=== PATIENT | male | born 1945 | race Caucasian/White ===

== ENCOUNTER 2017-09-22 12:58 | Outpatient (CLI) | payer MEDICARE | END 2017-09-22 12:59 | disposition home or self-care (01) | LOC: DI 12:58 | PROVIDERS: ATTEND Registered Nurse | DX: I35.0 Nonrheumatic aortic (valve) stenosis (principal); I77.810 Thoracic aortic ectasia; I51.7 Cardiomegaly | CPT/HCPCS: 93306 ==

== ENCOUNTER 2018-01-31 11:03 | Outpatient (CLI) | payer MEDICARE ==
[2018-01-31 17:24] LABS: BASOPHILS % (AUTO) 0.7 %; EOSINOPHILS # (AUTO) 0.2 10^3/uL (0.0-0.7); EOSINOPHILS % (AUTO) 2.6 %; LYMPHOCYTES # (AUTO) 1.3 10^3/uL (1.5-3.5); LYMPHOCYTES % (AUTO) 21.1 %; MEAN CORPUSCULAR HEMOGLOBIN 28.8 pg (27.0-31.0); MEAN CORPUSCULAR HGB CONC 32.7 g/dL (32.0-36.0); MEAN CORPUSCULAR VOLUME 88.1 fL (80.0-94.0); MEAN PLATELET VOLUME 7.2 fL (7.4-11.4); MONOCYTES # (AUTO) 0.7 10^3/uL (0.0-1.0); MONOCYTES % (AUTO) 10.4 %; NEUTROPHILS # (AUTO) 4.1 10^3/uL (1.5-6.6); NEUTROPHILS % (AUTO) 65.2 %; PLT - PLATELET COUNT 158 10^3/uL (130-450); RED BLOOD COUNT 4.51 10^6/uL (4.70-6.10); WHITE BLOOD COUNT 6.3 x10^3/uL (4.8-10.8)
[2018-01-31 17:52] LABS: CALCIUM 8.5 mg/dL (8.5-10.3); CREATININE 1.1 mg/dL (0.6-1.2)
[2018-01-31 17:57] LABS: INR 1.2 (0.8-1.2); PT - PROTHROMBIN TIME 13.8 secs (9.9-12.6)
== END 2018-01-31 11:04 | disposition home or self-care (01) ==
LOC: LAB.F 11:03
PROVIDERS: ATTEND Specialist
DX: I35.0 Nonrheumatic aortic (valve) stenosis (principal); R06.09 Other forms of dyspnea
CPT/HCPCS: 36415; 80048; 85025; 85610; 85730

== ENCOUNTER 2018-02-14 07:46 | Outpatient (CLI) | payer MEDICARE | END 2018-02-14 07:47 | disposition home or self-care (01) | LOC: LAB.F 07:46 | PROVIDERS: ATTEND Student in an Organized Health Care Education/Training Program | DX: E27.9 Disorder of adrenal gland, unspecified (principal) | CPT/HCPCS: 36415; 82088; 82533; 83835 ==

== ENCOUNTER 2018-04-19 10:44 | Outpatient (CLI) | payer MEDICARE | END 2018-04-19 10:45 | disposition home or self-care (01) | LOC: RT 10:44 | PROVIDERS: ATTEND Internal Medicine Cardiovascular Disease | DX: Z95.2 Presence of prosthetic heart valve (principal); Z79.01 Long term (current) use of anticoagulants | CPT/HCPCS: 36415; 80048; 93005 ==

== ENCOUNTER 2018-04-19 11:11 | Outpatient (CLI) | payer MEDICARE ==
[2018-04-19 11:59] LABS: CALCIUM 8.7 mg/dL (8.5-10.3); CREATININE 1.2 mg/dL (0.6-1.2)
== END 2018-04-19 11:12 | disposition home or self-care (01) ==
LOC: LAB 11:11
PROVIDERS: ATTEND Internal Medicine Cardiovascular Disease
DX: Z79.01 Long term (current) use of anticoagulants (principal)
CPT/HCPCS: 36415; 80048

== ENCOUNTER 2018-10-17 11:12 | Outpatient (CLI) | payer MEDICARE ==
--- NOTE | 2018-10-17 11:45 | XRAY Report ---
Reason: PAIN IN LEFT SHOULDER Procedure Date: 10/17/2018 Accession Number: [id number] / [id number] Procedure: XR - Shoulder 3 View LT CPT Code: FULL RESULT: EXAM: LEFT SHOULDER RADIOGRAPHY EXAM DATE: 10/17/2018 11:23 AM. CLINICAL HISTORY: PAIN IN LEFT SHOULDER. COMPARISON: None. TECHNIQUE: 3 views. FINDINGS: Bones: Severe AC joint osteoarthritis. No acute fracture. No other significant bony finding. Joints: The glenohumeral and acromioclavicular joints are normal. Soft tissues: The visualized hemithorax is unremarkable. No soft tissue swelling. No soft tissue calcifications. IMPRESSION: 1. Severe left AC joint osteoarthritis. 2. Otherwise negative examination. No acute fracture. RADIA
== END 2018-10-17 11:13 | disposition home or self-care (01) ==
LOC: DI 11:12
PROVIDERS: ATTEND Registered Nurse
DX: M19.012 Primary osteoarthritis, left shoulder (principal)

== ENCOUNTER 2019-07-11 13:09 | Outpatient (CLI) | payer MEDICARE | END 2019-07-11 13:10 | disposition home or self-care (01) | LOC: LAB.S 13:09 | PROVIDERS: ATTEND Nurse Practitioner Family | DX: R53.83 Other fatigue (principal) | CPT/HCPCS: 36415; 87040; 87077; 87181 ==

== ENCOUNTER 2019-07-12 09:31 | Outpatient (CLI) | payer MEDICARE | END 2019-07-12 09:32 | disposition home or self-care (01) | LOC: LAB.S 09:31 | PROVIDERS: ATTEND Nurse Practitioner Family | DX: R53.83 Other fatigue (principal) | CPT/HCPCS: 36415; 87040 ==

== ENCOUNTER 2019-07-31 11:07 | Outpatient (CLI) | payer MEDICARE ==
[2019-07-31 18:01] LABS: ALBUMIN 3.6 g/dL (3.2-5.5); ALBUMIN/GLOBULIN RATIO 1.2 (1.0-2.2); BILIRUBIN,TOTAL 0.7 mg/dL (0.2-1.0); CALCIUM 8.4 mg/dL (8.5-10.3); CREATININE 1.1 mg/dL (0.6-1.2); TOTAL PROTEIN 6.6 g/dL (6.7-8.2)
== END 2019-07-31 11:08 | disposition home or self-care (01) ==
LOC: LAB.S 11:07
PROVIDERS: ATTEND Nurse Practitioner Family
DX: R74.8 Abnormal levels of other serum enzymes (principal)
CPT/HCPCS: 36415; 80053

== ENCOUNTER 2019-08-02 09:43 | Outpatient (CLI) | payer MEDICARE ==
[2019-08-02] MEDS ORDERED: IOVERSOL 320 50 ML VIAL ONE (09:50)
[2019-08-02] MEDS ORDERED: IOVERSOL 320 100 ML VIAL IVP ONE ×2 (09:50→12:29)
[2019-08-02] MEDS ORDERED: IOVERSOL 320 50 ML VIAL PO ONE (12:29)
--- NOTE | 2019-08-02 12:39 | CT Report ---
Reason: GALL STONES Procedure Date: 08/02/2019 Accession Number: [id number] / [id number] Procedure: CT - Abdomen/Pelvis W CPT Code: Final Report FULL RESULT: EXAM: CT ABDOMEN AND PELVIS EXAM DATE: 08/02/2019 11:09 AM. CLINICAL HISTORY: GALL STONES. COMPARISONS: ABD/PEL 01/16/2006 7:13 AM. TECHNIQUE: Routine helical CT imaging was performed through the abdomen and pelvis. IV contrast: OPTI 320 90ML. Enteric contrast: No. Reconstructions: Coronal and sagittal. In accordance with CT protocol optimization, one or more of the following dose reduction techniques were utilized for this exam: automated exposure control, adjustment of mA and/or KV based on patient size, or use of iterative reconstructive technique. FINDINGS: Lung Bases: Calcified well-circumscribed nodules are noted in the lung bases. Solid organs: The liver, spleen, pancreas, and right adrenal gland are without evidence of a mass. There is redemonstration of a lesion on the left adrenal gland. It measures 28 HU and measures 2.7 x 2.1 cm (image 20 of series 3). On the previous study it measured 2.1 x 1.4 cm. The kidneys are without evidence of an enhancing mass. There is no evidence of hydronephrosis or hydroureter. Gallstones are seen within the gallbladder. There is no intrahepatic biliary duct dilatation. Peritoneal Cavity/Bowel: There is no CT evidence of acute appendicitis. There are no dilated loops of bowel to suggest the presence of an obstruction. There is no evidence of diverticulosis or diverticulitis. Pelvic Organs: No mass or cyst is seen within the pelvis. There is redemonstration of a 1 cm right external iliac lymph node. The appearance is similar to the previous Dotty (image 78 of series 3). Vasculature: There is atherosclerosis of the aorta without evidence of aneurysmal dilatation. Postoperative changes of the aortic valve are noted. Bones: There are degenerative changes of the thoracic and lumbar spine. IMPRESSION: Left adrenal lesion with interval increase in size when compared to the previous study. A dedicated adrenal protocol CT may be beneficial for further characterization. Cholelithiasis without evidence of obstruction. RADIA
== END 2019-08-02 09:44 | disposition home or self-care (01) ==
LOC: DI 09:43
PROVIDERS: ATTEND Nurse Practitioner Family
DX: K80.20 Calculus of gallbladder without cholecystitis without obstruction (principal); E27.8 Other specified disorders of adrenal gland
CPT/HCPCS: 74177; Q9967

== ENCOUNTER 2019-08-09 12:14 | Outpatient (CLI) | payer MEDICARE | END 2019-08-09 12:15 | disposition home or self-care (01) | LOC: LAB.S 12:14 | PROVIDERS: ATTEND Internal Medicine | DX: R78.81 Bacteremia (principal); B95.5 Unspecified streptococcus as the cause of diseases classified elsewhere; Z95.3 Presence of xenogenic heart valve | CPT/HCPCS: 36415; 87040 ==

== ENCOUNTER 2019-08-23 10:28 | Outpatient (CLI) | payer MEDICARE | END 2019-08-23 10:29 | disposition home or self-care (01) | LOC: LAB.S 10:28 | PROVIDERS: ATTEND Internal Medicine | DX: R78.81 Bacteremia (principal); B95.5 Unspecified streptococcus as the cause of diseases classified elsewhere; Z95.3 Presence of xenogenic heart valve | CPT/HCPCS: 36415; 87040 ==

== ENCOUNTER 2019-08-27 12:32 | Outpatient (CLI) | payer MEDICARE | END 2019-08-27 23:59 | disposition home or self-care (01) | LOC: LAB.S 12:32 | PROVIDERS: ATTEND Internal Medicine | DX: R78.81 Bacteremia (principal); B95.5 Unspecified streptococcus as the cause of diseases classified elsewhere; Z95.3 Presence of xenogenic heart valve | CPT/HCPCS: 36415; 87040 ==

== ENCOUNTER 2019-12-19 12:29 | Outpatient (CLI) | payer MEDICARE | END 2019-12-19 12:30 | disposition home or self-care (01) | LOC: LAB.S 12:29 | PROVIDERS: ATTEND Registered Nurse | DX: I39 Endocarditis and heart valve disorders in diseases classified elsewhere (principal); D64.9 Anemia, unspecified; D69.6 Thrombocytopenia, unspecified; Z11.59 Encounter for screening for other viral diseases | CPT/HCPCS: 82746 ==

== ENCOUNTER 2020-02-19 14:03 | Outpatient (CLI) | payer MEDICARE ==
[2020-02-19 19:47] LABS: BASOPHILS % (AUTO) 0.5 %; EOSINOPHILS # (AUTO) 0.1 10^3/uL (0.0-0.7); EOSINOPHILS % (AUTO) 2.3 %; HGB - HEMOGLOBIN 11.2 g/dL (14.0-18.0); LYMPHOCYTES # (AUTO) 1.5 10^3/uL (1.5-3.5); LYMPHOCYTES % (AUTO) 25.4 %; MEAN CORPUSCULAR HEMOGLOBIN 28.1 pg (27.0-31.0); MEAN CORPUSCULAR HGB CONC 30.4 g/dL (32.0-36.0); MEAN CORPUSCULAR VOLUME 92.5 fL (80.0-94.0); MEAN PLATELET VOLUME 9.4 fL (7.4-11.4); MONOCYTES # (AUTO) 0.6 10^3/uL (0.0-1.0); MONOCYTES % (AUTO) 9.6 %; NEUTROPHILS # (AUTO) 3.6 10^3/uL (1.5-6.6); PLT - PLATELET COUNT 126 10^3/uL (130-450); RED BLOOD COUNT 3.98 10^6/uL (4.70-6.10); RED CELL DISTRIBUTION WIDTH 14.4 % (12.0-15.0); WHITE BLOOD COUNT 5.7 x10^3/uL (4.8-10.8)
[2020-02-19 20:06] LABS: % IRON SATURATION 17 % (20-50); IRON 46 ug/dL (45-182); TOTAL IRON BINDING CAPACITY 273 ug/dL (250-450); TRANSFERRIN 195 mg/dL (180-329)
== END 2020-02-19 14:04 | disposition home or self-care (01) ==
LOC: LAB.S 14:03
PROVIDERS: ATTEND Registered Nurse
DX: D50.9 Iron deficiency anemia, unspecified (principal)
CPT/HCPCS: 36415; 82728; 83540; 84466; 85025

== ENCOUNTER 2020-07-24 11:01 | Outpatient (CLI) | payer MEDICARE ==
[2020-07-24 14:28] LABS: BASOPHILS # (AUTO) 0.1 10^3/uL (0.0-0.1); BASOPHILS % (AUTO) 0.8 %; EOSINOPHILS # (AUTO) 0.2 10^3/uL (0.0-0.7); EOSINOPHILS % (AUTO) 2.8 %; HGB - HEMOGLOBIN 11.7 g/dL (14.0-18.0); LYMPHOCYTES # (AUTO) 1.3 10^3/uL (1.5-3.5); LYMPHOCYTES % (AUTO) 22.3 %; MEAN CORPUSCULAR HEMOGLOBIN 29.4 pg (27.0-31.0); MEAN CORPUSCULAR HGB CONC 31.5 g/dL (32.0-36.0); MEAN CORPUSCULAR VOLUME 93.5 fL (80.0-94.0); MEAN PLATELET VOLUME 8.8 fL (7.4-11.4); MONOCYTES # (AUTO) 0.6 10^3/uL (0.0-1.0); MONOCYTES % (AUTO) 10.2 %; NEUTROPHILS # (AUTO) 3.8 10^3/uL (1.5-6.6); NEUTROPHILS % (AUTO) 63.6 %; PLT - PLATELET COUNT 132 10^3/uL (130-450); RED BLOOD COUNT 3.98 10^6/uL (4.70-6.10); RED CELL DISTRIBUTION WIDTH 13.6 % (12.0-15.0)
[2020-07-24 15:16] LABS: ALBUMIN 3.8 g/dL (3.2-5.5); ALBUMIN/GLOBULIN RATIO 1.5 (1.0-2.2); ALKALINE PHOSPHATASE 67 IU/L (42-121); ALT ALANINE AMINOTRANSFERASE 20 IU/L (10-60); AST ASPARTATE AMINOTRANSFERASE 21 IU/L (10-42); BILIRUBIN,TOTAL 0.3 mg/dL (0.2-1.0); BUN - BLOOD UREA NITROGEN 26 mg/dL (6-20); CALCIUM 8.7 mg/dL (8.5-10.3); CARBON DIOXIDE - CO2 27 mmol/L (21-32); CHLORIDE 108 mmol/L (101-111); CREATININE 1.1 mg/dL (0.6-1.2); CRP - C-REACTIVE PROTEIN < 1.0 mg/dL (0-1.0); GLUCOSE 110 mg/dL (70-100); TOTAL PROTEIN 6.4 g/dL (6.7-8.2)
== END 2020-07-24 11:02 | disposition home or self-care (01) ==
LOC: LAB.S 11:01
PROVIDERS: ATTEND Internal Medicine Rheumatology
DX: M47.9 Spondylosis, unspecified (principal); Z79.899 Other long term (current) drug therapy
CPT/HCPCS: 36415; 80053; 85025; 86140

== ENCOUNTER 2021-02-27 10:00 | Outpatient (CLI) | payer MEDICARE ==
[2021-02-27 15:15] LABS: BASOPHILS % (AUTO) 0.7 %; EOSINOPHILS # (AUTO) 0.1 10^3/uL (0.0-0.7); EOSINOPHILS % (AUTO) 2.5 %; HGB - HEMOGLOBIN 11.7 g/dL (14.0-18.0); LYMPHOCYTES % (AUTO) 17.9 %; MEAN CORPUSCULAR HEMOGLOBIN 29.3 pg (27.0-31.0); MEAN CORPUSCULAR HGB CONC 30.8 g/dL (32.0-36.0); MEAN CORPUSCULAR VOLUME 95.2 fL (80.0-94.0); MEAN PLATELET VOLUME 9.4 fL (7.4-11.4); MONOCYTES # (AUTO) 0.7 10^3/uL (0.0-1.0); MONOCYTES % (AUTO) 11.6 %; NEUTROPHILS # (AUTO) 3.7 10^3/uL (1.5-6.6); NEUTROPHILS % (AUTO) 67.1 %; PLT - PLATELET COUNT 123 10^3/uL (130-450); RED BLOOD COUNT 3.99 10^6/uL (4.70-6.10); RED CELL DISTRIBUTION WIDTH 14.4 % (12.0-15.0); WHITE BLOOD COUNT 5.6 x10^3/uL (4.8-10.8)
[2021-02-27 15:43] LABS: ALBUMIN 3.7 g/dL (3.2-5.5); ALBUMIN/GLOBULIN RATIO 1.4 (1.0-2.2); ALKALINE PHOSPHATASE 80 IU/L (42-121); ALT ALANINE AMINOTRANSFERASE 22 IU/L (10-60); AST ASPARTATE AMINOTRANSFERASE 21 IU/L (10-42); BILIRUBIN,TOTAL 0.6 mg/dL (0.2-1.0); BUN - BLOOD UREA NITROGEN 26 mg/dL (6-20); CALCIUM 8.5 mg/dL (8.5-10.3); CARBON DIOXIDE - CO2 28 mmol/L (21-32); CHLORIDE 109 mmol/L (101-111); CREATININE 1.3 mg/dL (0.6-1.2); GFR - MDRD 54 (>89); GLUCOSE 107 mg/dL (70-100); POTASSIUM 4.3 mmol/L (3.5-5.0); SODIUM 144 mmol/L (135-145); TOTAL PROTEIN 6.4 g/dL (6.7-8.2)
[2021-02-27 16:41] LABS: CRP - C-REACTIVE PROTEIN < 1.0 mg/dL (0-1.0)
== END 2021-02-27 10:01 | disposition home or self-care (01) ==
LOC: LAB.S 10:00
PROVIDERS: ATTEND Internal Medicine Rheumatology
DX: M47.819 Spondylosis without myelopathy or radiculopathy, site unspecified (principal); Z79.899 Other long term (current) drug therapy
CPT/HCPCS: 36415; 80053; 85025; 86140

== ENCOUNTER 2021-08-04 06:39 | Day surgery (SDC) | payer MEDICARE ==
[2021-08-04] MEDS ORDERED: LACTATED RINGERS 1,000 ML IV ONE ×2 (07:11→09:38)
--- NOTE | 2021-08-04 08:00 | ANESTHESIA ---
Pre-Anesthesia VS, & Labs - Diagnosis screening - Procedure colonoscopy Vital Signs: Temp Pulse Resp BP Pulse Ox 36.2 C L 92 18 140/90 H 96 08/04/21 07:01 08/04/21 07:01 08/04/21 07:01 08/04/21 07:01 08/04/21 07:01 Height: 5 ft 10 in Weight (kg): 130 kg Body Mass Index: 41.1 BMI Classification: Morbidly Obese - NPO >8 hours Last Fluid Intake: am prep - Lab Results Lab results reviewed: Yes Home Medications and Allergies Home Medications: Ambulatory Orders Carvedilol [Coreg] 37.5 mg PO BID 08/02/21 Ferrous Gluconate 324 mg PO DAILY 08/02/21 hydrALAZINE [Apresoline] 25 mg PO TID 08/02/21 Amlodipine Besylate 5 mg PO BID 11/27/12 Aspirin 81 mg PO DAILY 11/27/12 Atorvastatin Calcium [Lipitor] 20 mg PO DAILY 11/27/12 Calcium Carbonate/Vitamin D3 [Calcium + Vitamin D Tablet] 1 each PO DAILY 11/27/12 Folic Acid 1 mg PO DAILY 11/27/12 Sulfasalazine [Sulfazine EC] 1,000 mg PO BID 11/27/12 Carvedilol [Coreg] 37.5 mg PO BID 08/02/21 Ferrous Gluconate 324 mg PO DAILY 08/02/21 hydrALAZINE [Apresoline] 25 mg PO TID 08/02/21 Allergies/Adverse Reactions: Allergies Allergy/AdvReac Type Severity Reaction Status Date / Time lisinopril Allergy Severe Respiratory Verified 11/27/12 00:40 Thiazides Allergy unknown Verified 11/27/12 00:40 Anes History & Medical History - Anesthetic History Anesthesia Complications: reports: No previous complications Family history of Anesthesia Complications: Denies Family history of Malignant Hyperthermia: Denies - Medical History Cardiovascular: reports: Hypertension, High cholesterol, Murmur Pulmonary: reports: Sleep apnea, CPAP use Gastrointestinal: reports: None Urinary: reports: None Musculoskeletal: reports: Osteoarthritis Endocrine/Autoimmune: reports: None Skin: reports: None Smoking Status: Never smoker - Surgical History Cardiothoracic: reports: Valve replacement, Vascular surgery Exam General: Alert, Oriented x3, Cooperative Dental: WNL Mouth Opening: Greater than 4 Fingerbreadths Neck Mobility: Limited Mallampati classification: II Thyromental Distance: 4-6 cm Respiratory: Lungs clear, Normal breath sounds, No respiratory distress Cardiovascular: Regular rate (sinus arhythmia on tele, long stretches on NSR with PACs) Neurological: Normal speech Mental/Cognitive Status: Alert/Oriented X3, Normal for patient Plan Anesthesia Type: Total IV Consent for Procedure(s) Verified and Reviewed: Yes Code Status: Attempt Resuscitation ASA classification: 3-Severe systemic disease Is this case an emergency?: No
[2021-08-04] MEDS ORDERED: PROPOFOL 500 MG/50 ML 500 MG/50 ML VIAL ONE (08:28)
[2021-08-04] MEDS ORDERED: PROPOFOL 200 MG/20 ML VIAL IVP ONE (09:02)
[2021-08-04] MEDS ORDERED: ePHEDrine 50 MG/ML VIAL IVP ONE (09:12)
--- NOTE | 2021-08-04 10:41 | ANESTHESIA POST OP EVALUATION ---
Anesthesia Post Eval - Post Anesthesia Eval Vitals: Last Vital Signs Temp 36.4 C L 08/04/21 10:15 Pulse 82 08/04/21 10:15 Resp 18 08/04/21 10:15 BP 125/68 08/04/21 10:15 Pulse Ox 91 L 08/04/21 10:15 CV Function Including HR & BP: Stable, Additional Therapies Ordered (EKG in pacu for suspected Afib vs SRc frequent PACs) Pain Control: Satisfactory Nausea & Vomiting: Negative Mental Status: Baseline Respiratory Status: Airway Patent Hydration Status: Satisfactory Anesthesia Complications: None
--- NOTE | 2021-08-04 10:47 | CONSULTATION NOTE ---
Referring Provider Name of Referring Provider:: Elie Maki MD Consult Date: 08/04/21 Chief Complaint - Chief Complaint Chief Complaint: new atrial fib on tele monitor History of Present Illness - Admitted From Admitted From:: not admitted, in PACU - History Obtained From Records Reviewed: [facility] History obtained from: patient and Dr. Maki Exam Limitations: none - History of Present Illness HPI Comment/Other: This is a 75-year-old man who has had a TAVR for aortic stenosis. He states it was a successful repair and he is followed by Dr. Cheney of the [place] [facility]. He was last seen in August 2020 and is due for his yearly visit. His last echocardiogram was October 2020. He presented to our hospital today for an elective colonoscopy. He underwent an uneventful prep. In the preoperative holding area, he was noted to have an ir regular heartbeat and on telemetry he was watched carefully by our utility locate technician Jose Luis and found to be sinus with numerous PACs. He underwent an uneventful colonoscopy. And in the recovery area was noted to be going in and out of atrial fibrillation. The EKG I have to review shows sinus rhythm. He has no history of coronary artery disease, arrhythmia. He states that his cardiovascular endurance has been the same as always and he does not feel any sense of dyspnea exertion, palpitations, edema, orthopnea. His activities have been the same without prolonged bedrest or sitting. As far as he knows, his thyroid is normal. He denies any chest pain. The rate on the tele monitor is in the 80s consistently. No bursts of PSVT. History - Past Medical History Cardiovascular: reports: Hypertension, High cholesterol, Murmur, Valve disorder (s/p TAVR) Respiratory: reports: Sleep apnea, CPAP use Endocrine/Autoimmune: reports: None GI: reports: None : reports: None HEENT: reports: Glaucoma, Chronic hearing loss Psych: reports: None Musculoskeletal: reports: Osteoarthritis Derm: reports: None MRSA Hx?: No - Past Surgical History General: reports: Colonoscopy (today) Cardiovascular: reports: Valve replacement, Vascular surgery - Family & Social History Family History Comment/Other: Mom and dad with any significant arrhythmia history or thyroid disease or history of pulmonary embolism. Siblings also without any significant history as above. Children healthy Living arrangement: At home Living Situation: With spouse/s.o. Social History Notes: He smoked for about 10 years. Probably close to 1 pack/day. Quit 30 years ago. Drinks 1 ounce of alcohol a day. Never had a problem with alcohol abuse. 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 - Substance History Use: Uses substance without health or social issues: Alcohol Abuse: Recurrent use of substance despite neg consequences: NONE Dependence: Experiences withdrawal or developed tolerances: NONE - POLST Patient has POLST: Yes POLST Status: Limited Interventions Meds/Allgy - Home Medications Home Medications: Ambulatory Orders Medication Instructions Recorded Confirmed Amlodipine Besylate 5 mg PO BID 11/27/12 08/04/21 Aspirin 81 mg PO DAILY 11/27/12 08/04/21 Atorvastatin Calcium [Lipitor] 20 mg PO DAILY 11/27/12 08/04/21 Calcium Carbonate/Vitamin D3 1 each PO DAILY 11/27/12 08/04/21 [Calcium + Vitamin D Tablet] Folic Acid 1 mg PO DAILY 11/27/12 08/04/21 Sulfasalazine [Sulfazine EC] 1,000 mg PO BID 11/27/12 08/04/21 Carvedilol [Coreg] 37.5 mg PO BID 08/02/21 08/04/21 Ferrous Gluconate 324 mg PO DAILY 08/02/21 08/04/21 hydrALAZINE [Apresoline] 25 mg PO TID 08/02/21 08/04/21 Rivaroxaban [Xarelto] 20 mg PO DAILY #30 tablet 08/04/21 - Allergies Allergies/Adverse Reactions: Allergies Allergy/AdvReac Type Severity Reaction Status Date / Time lisinopril Allergy Severe Respiratory Verified 11/27/12 00:40 Thiazides Allergy unknown Verified 11/27/12 00:40 Review of Systems - Constitutional Constitutional: denies: Fatigue, Fever, Chills, Malaise, Weakness, Poor appetite, Diaphoresis, Night sweats - Eyes Eyes: reports: Vision loss (chronic). denies: Irritation, Amaurosis, Blurred vision - Ears, Nose & Throat Ears, Nose & Throat: reports: Hearing loss. denies: Ear pain, Hearing aids, Tinnitus, Vertigo, Nasal pain, Postnasal drainage, Dentures, Sore throat, Hoarseness - Cardiovascular Cariovascular: denies: Irregular heart rate, Palpitations, Chest pain, Exerti onal dyspnea, Decr. exercise tolerance - Respiratory Respiratory: reports: Snoring, Apnea. denies: Cough, Sputum production, Wheezing, SOB at rest, SOB with exertion - Gastrointestinal Gastrointestinal: denies: Abdominal pain, Abdominal distention, Constipation, Diarrhea, Change in bowel habits - Genitourinary Genitourinary: denies: Dysuria, Frequency, Urgency, Hematuria - Musculoskeletal Musculoskeletal: denies: Muscle pain, Back pain, Muscle aches, Stiffness, Gout, Joint pain - Integumentary Integumentary: denies: Rash, Pruritis, Lesions, Dryness - Neurological Neurological: denies: General weakness, Focal weakness, Headache, Dizziness, Pre-existing deficit, Abnormal gait - Psychiatric Psychiatric: denies: Depression, Anxiety, Suicidal, Delusions, Hallucinations - Endocrine Endocrine: denies: Polyuria, Polydypsia, Polyphagia - Hematologic/Lymphatic Hematologic/Lymphatic: denies: Anemia, Bruising, Petechiae Exam - Vital Signs Reviewed Vital Signs: Yes Vital Signs: Vital Signs x48h Temp Pulse Resp BP Pulse Ox 08/04/21 10:41 36.4 C L 86 17 141/80 H 92 08/04/21 10:15 36.4 C L 82 18 125/68 91 L 08/04/21 09:51 36.4 C L 87 20 119/84 H 88 L 08/04/21 09:35 36.4 C L 82 16 93/46 L 92 08/04/21 07:01 36.2 C L 92 18 140/90 H 96 - Physical Exam General Appearance: positive: No acute distress, Alert, Other (5 foot 10 inch, mom morbidly obese white male 830 kg. BMI 41.1. Comfortable. Lucid historian. Normal speech patterns. No distress whatsoever.) Eyes Bilateral: positive: PERRL, EOMI ENT: positive: Pharynx nml Neck: positive: No JVD. negative: Stiff neck Respiratory: positive: No respiratory distress. negative: Wheezes, Rales, Rhonchi Cardiovascular: positive: Irregularly irregular. negative: Tachycardia, Bradycardia, Gallop/S4, Friction rub Peripheral Pulses: positive: 1+ Abdomen: positive: Non-tender, No organomegaly, Nml bowel sounds, Other (distended w gas) Skin: positive: No rash, Warm, Dry, Pallor. negative: Diaphoresis Extremities: positive: Non-tender, Full ROM, Nml appearance Neurologic/Psychiatric: positive: Oriented x3, CN's nml (2-12), Motor nml, S ensation nml Conclusion/Plan - Problem List (1) New onset atrial fibrillation Conclusion/Plan: There is no clear delineation of when this patient may have gone into atrial fibrillation. He already had an irregular heartbeat before his colonoscopy that resolved. And then it went back to being irregular after the procedure. He is not hypoxic. He is normotensive. He has absolutely no symptoms whatsoever. However because of his age, hypertension, etc. his [id number] score is high enough that he would require anticoagulation for this. I have explained to him the rationale of why anticoagulation is necessary in atrial fibrillation. His heart rate is already controlled and I hesitate to give him too much rate control. I will continue his coreg 37.5 mg po bid since his rate is acceptable. He use to take metoprolol but can't remember why it was changed. I do not feel the need to do an echocardiogram since he is followed closely by cardiology already. I have spoken to Dr. Ward, who is on-call for Dr. Cheney, and he does not offer any other recommendations. He feels that my management is appropriate and encourage the patient to be seen by his building admin in the near future. For completeness sake I have ordered a CBC, CMP, troponin and a TSH. A repeat EKG to verify rhythm. I did explain to the patient that the differential diagnosis would include include myocardial infarction, coronary ischemia of any type, pulmonary embolism, thyroiditis, or electrolyte disorders. When we discussed the symptoms of all of those things, he feels (and I agree) that he has none of the symptoms of any of these problems. He states he just feels so comfortable, and has had no change in cardiovascular status that he is startled by his findings with this elective colonoscopy. I calculated his creatinine clearance at 69 mL/min modified for weight. Using that same calculation his ranges between 52.3-68.6. I will be using Xarelto 20 mg daily. He can start that tomorrow since he did have polypectomies today. - Lab Results Lab results reviewed: Yes Fish Bones: 08/04/21 10:58 08/04/21 10:58 - EKG Results EKG Interpreted Independently: Yes EKG Comparison: No prior EKG (NSR with numerous PACs on first EKG,)
[2021-08-04 11:04] LABS: BASOPHILS % (AUTO) 0.5 %; EOSINOPHILS % (AUTO) 0.4 %; HCT - HEMATOCRIT 38.9 % (42.0-52.0); HGB - HEMOGLOBIN 12.3 g/dL (14.0-18.0); LYMPHOCYTES # (AUTO) 0.8 10^3/uL (1.5-3.5); LYMPHOCYTES % (AUTO) 10.4 %; MEAN CORPUSCULAR HEMOGLOBIN 29.6 pg (27.0-31.0); MEAN CORPUSCULAR HGB CONC 31.6 g/dL (32.0-36.0); MEAN CORPUSCULAR VOLUME 93.7 fL (80.0-94.0); MONOCYTES # (AUTO) 0.5 10^3/uL (0.0-1.0); MONOCYTES % (AUTO) 7.4 %; NEUTROPHILS # (AUTO) 5.9 10^3/uL (1.5-6.6); NEUTROPHILS % (AUTO) 80.9 %; PLT - PLATELET COUNT 74 10^3/uL (130-450); RED BLOOD COUNT 4.15 10^6/uL (4.70-6.10); RED CELL DISTRIBUTION WIDTH 14.2 % (12.0-15.0); WHITE BLOOD COUNT 7.3 x10^3/uL (4.8-10.8)
[2021-08-04 11:22] LABS: ALBUMIN 3.6 g/dL (3.2-5.5); ALBUMIN/GLOBULIN RATIO 1.4 (1.0-2.2); CREATININE 1.3 mg/dL (0.6-1.2); POTASSIUM 3.4 mmol/L (3.5-5.0); TOTAL PROTEIN 6.1 g/dL (6.7-8.2)
[2021-08-04] MEDS ORDERED: POTASSIUM CHLORIDE 20 MEQ TABLET PO ONE (11:44)
[2021-08-04 12:25] VITALS: BP 144/91
== END 2021-08-04 06:40 | disposition home or self-care (01) ==
LOC: SDS 06:39
PROVIDERS: ATTEND Surgery
PROC: 0DBL8ZZ Excision of Transverse Colon, Via Natural or Artificial Opening Endoscopic (ICD-10-PCS; 2021-08-04)
PROC: 0DBN8ZZ Excision of Sigmoid Colon, Via Natural or Artificial Opening Endoscopic (ICD-10-PCS; 2021-08-04)
PROC: 0DBP8ZZ Excision of Rectum, Via Natural or Artificial Opening Endoscopic (ICD-10-PCS; 2021-08-04)
PROC: 0DBK8ZZ Excision of Ascending Colon, Via Natural or Artificial Opening Endoscopic (ICD-10-PCS; principal; 2021-08-04 08:00)
DX: R19.5 Other fecal abnormalities (principal); D12.3 Benign neoplasm of transverse colon; D12.2 Benign neoplasm of ascending colon; D12.5 Benign neoplasm of sigmoid colon; I48.91 Unspecified atrial fibrillation; K64.8 Other hemorrhoids; K62.1 Rectal polyp; E66.01 Morbid (severe) obesity due to excess calories; Z68.41 Body mass index [BMI] 40.0-44.9, adult; I12.9 Hypertensive chronic kidney disease with stage 1 through stage 4 chronic kidney disease, or unspecified chronic kidney disease; N18.9 Chronic kidney disease, unspecified; D64.9 Anemia, unspecified; Z87.891 Personal history of nicotine dependence; Z86.39 Personal history of other endocrine, nutritional and metabolic disease; Z95.2 Presence of prosthetic heart valve; G47.33 Obstructive sleep apnea (adult) (pediatric); I10 Essential (primary) hypertension
CPT/HCPCS: 36415; 45385; 80053; 84443; 84484; 85025; 93005; 93041; A9270; J7120

== ENCOUNTER 2021-09-08 19:44 | Outpatient (CLI) | payer MEDICARE | END 2021-09-08 19:45 | disposition critical access hospital (66) | LOC: EMS 19:44 | DX: R06.09 Other forms of dyspnea (principal) | CPT/HCPCS: A0425; A0429 ==

== ENCOUNTER 2021-09-08 20:16 | Observation (INO) | payer MEDICARE ==
[2021-09-08 20:53] LABS: BASOPHILS % (AUTO) 0.1 %; EOSINOPHILS % (AUTO) 0.4 %; HCT - HEMATOCRIT 24.3 % (42.0-52.0); HGB - HEMOGLOBIN 7.8 g/dL (14.0-18.0); LYMPHOCYTES # (AUTO) 0.6 10^3/uL (1.5-3.5); MEAN CORPUSCULAR HEMOGLOBIN 28.8 pg (27.0-31.0); MEAN CORPUSCULAR HGB CONC 32.1 g/dL (32.0-36.0); MEAN CORPUSCULAR VOLUME 89.7 fL (80.0-94.0); MONOCYTES # (AUTO) 0.4 10^3/uL (0.0-1.0); MONOCYTES % (AUTO) 5.3 %; NEUTROPHILS % (AUTO) 86.8 %; PLT - PLATELET COUNT 140 10^3/uL (130-450); RED BLOOD COUNT 2.71 10^6/uL (4.70-6.10); RED CELL DISTRIBUTION WIDTH 15.6 % (12.0-15.0)
[2021-09-08 20:54] LABS: VBG HCO3 24.2 mmol/L (23-28); VBG PCO2 36.8 mmHg (41-51); VBG PH 7.435 (7.31-7.41); VBG PO2 68.4 mmHg (25-47); VBG TOTAL CO2 25.3 mmol/L (24-29)
[2021-09-08 20:55] LABS: VBG OXYGEN SATURATION 92.1 % (60-80)
[2021-09-08 21:04] LABS: ALBUMIN 2.9 g/dL (3.2-5.5); ALBUMIN/GLOBULIN RATIO 0.9 (1.0-2.2); BILIRUBIN,TOTAL 0.9 mg/dL (0.2-1.0); CREATININE 1.4 mg/dL (0.6-1.2); POTASSIUM 4.2 mmol/L (3.5-5.0); TOTAL PROTEIN 6.3 g/dL (6.7-8.2)
--- NOTE | 2021-09-08 21:09 | ED Physician Documentation ---
History of Present Illness - Stated complaint Stated Complaint: EXERTIONAL SOA X 5 WEEKS, EDEMA - Chief complaint Chief Complaint: Resp - History obtained from History obtained from: Patient - Additonal information Additional information: 75yM with pmh htn, psh TAVR, recent colonoscopy with copious polyp removal c/by postprocedural anemia and new onset afib 5 weeks ago (briefly on eliquis, stopped after a couple days) p/w exertional dyspnea intermittent over the past 5 days, worsening today. also with lightheadedness with exertion. endorses chronic BL LE edema, nonworsening. denies pillow orthopnea. denies fever, cough, cp, nausea, abd pain, diaphoresis . RA o2 sat 87%, improving to 97% on 3L Review of Systems Ten Systems: 10 systems reviewed and negative Constitutional: denies: Fever, Chills Cardiac: denies: Chest pain / pressure Respiratory: reports: Dyspnea. denies: Cough GI: denies: Abdominal Pain, Nausea, Vomiting Neurologic: reports: Other (dizziness) PD PAST MEDICAL HISTORY - Past Medical History Past Medical History: Yes Cardiovascular: Hypertension, High cholesterol, Atrial fibrillation, Murmur, Valve disorder Respiratory: Sleep apnea, CPAP use Endocrine/Autoimmune: None GI: None : None HEENT: Glaucoma, Chronic hearing loss Psych: None Musculoskeletal: Osteoarthritis Derm: None - Past Surgical History Past Surgical History: Yes General: Colonoscopy Cardiovascular: Valve replacement, Vascular surgery - Present Medications Home Medications: Ambulatory Orders Medication Instructions Recorded Confirmed Amlodipine Besylate 5 mg PO BID 11/27/12 09/08/21 Atorvastatin Calcium [Lipitor] 20 mg PO DAILY 11/27/12 09/08/21 Folic Acid 1 mg PO DAILY 11/27/12 09/08/21 Carvedilol [Coreg] 37.5 mg PO BID 08/02/21 09/08/21 Ferrous Gluconate 324 mg PO DAILY 08/02/21 09/08/21 hydrALAZINE [Apresoline] 50 mg PO TID 08/02/21 09/08/21 Apixaban [Eliquis] 5 mg PO BID #60 tablet 08/04/21 09/08/21 Multivitamin 1 tab PO DAILY 09/08/21 09/08/21 - Allergies Allergies/Adverse Reactions: Allergies Allergy/AdvReac Type Severity Reaction Status Date / Time lisinopril Allergy Severe Respiratory Verified 09/08/21 20:29 Thiazides Allergy unknown Verified 09/08/21 20:29 - Social History Does the pt smoke?: No Smoking Status: Never smoker Does the pt drink ETOH?: Yes Does the pt have substance abuse?: No - Immunizations Immunizations are current?: Yes - POLST Patient has POLST: Yes POLST Status: Limited Interventions PD ED PE NORMAL - Vitals Vital signs reviewed: Yes - General General: Alert and oriented X 3, No acute distress, Well developed/nourished - HEENT HEENT: Atraumatic, PERRL, EOMI, Other (pale conjunctiva) - Neck Neck: Supple, no meningeal sign - Cardiac Cardiac: Other (tachycardic rate, irregular rhythm) - Respiratory Respiratory: No respiratory distress, Clear bilaterally - Abdomen Abdomen: Non tender, Non distended - Derm Derm: Normal color, Warm and dry - Extremities Extremities: Other (1+ BL pitting edema) - Neuro Neuro: Alert and oriented X 3 - Psych Psych: Normal mood, Normal affect Results - Vitals Vitals: Vital Signs - 24 hr 09/08/21 09/08/21 20:24 21:36 Temperature 37.4 C Heart Rate 96 86 Respiratory 22 30 H Rate Blood Pressure 150/69 H 140/70 H O2 Saturation 97 93 Oxygen O2 Source Nasal cannula Oxygen Flow Rate 3 - EKG (time done) 2016 Rate: Rate (enter#) (95) Rhythm: Atrial fibrillation Ischemia: Other (no STEMI) Computer interpretation: Agree with computer - Labs Labs: Microbiology 09/08/21 21:22 Occult Blood - Final Stool Laboratory Tests 09/08/21 09/08/21 09/08/21 20:20 20:38 20:38 WBC 8.0 RBC 2.71 L Hgb 7.8 L Hct 24.3 L MCV 89.7 MCH 28.8 MCHC 32.1 RDW 15.6 H Plt Count 140 MPV 9.0 Neut # (Auto) 7.0 H Lymph # (Auto) 0.6 L [place] # (Auto) 0.4 Eos # (Auto) 0.0 Baso # (Auto) 0.0 Absolute Nucleated RBC 0.00 Nucleated RBC % 0.0 VBG pH VBG pCO2 VBG pO2 VBG HCO3 VBG Total CO2 VBG O2 Saturation VBG Base Excess Sodium 135 Potassium 4.2 Chloride 104 Carbon Dioxide 23 Anion Gap 8.0 BUN 31 H Creatinine 1.4 H Estimated GFR (MDRD) 50 L Glucose 132 H Calcium 8.0 L Total Bilirubin 0.9 AST 16 ALT 16 Alkaline Phosphatase 48 Troponin I High Sens B-Natriuretic Peptide 744 H Total Protein 6.3 L Albumin 2.9 L Globulin 3.4 Albumin/Globulin Ratio 0.9 L Lipase 192 H Nasal Adenovirus (PCR) Nasal B. parapertussis DNA (PCR) Nasal Coronavir 229E PCR Nasal Coronavir HKU1 PCR Nasal Coronavir NL63 PCR Nasal Coronavir OC43 PCR Nasal Enterovir/Rhinovir PCR Nasal Influenza B PCR Nasal Influenza A PCR Nasal Parainfluen 1 PCR Nasal Parainfluen 2 PCR Nasal Parainfluen 3 PCR Nasal Parainfluen 4 PCR Nasal RSV (PCR) Nasal B.pertussis DNA PCR Nasal C.pneumoniae (PCR) [place] Metapneumo PCR Nasal M.pneumoniae (PCR) Nasal SARS-CoV-2 (PCR) 09/08/21 09/08/21 09/08/21 20:38 20:38 20:50 WBC RBC Hgb Hct MCV MCH MCHC RDW Plt Count MPV Neut # (Auto) Lymph # (Auto) [place] # (Auto) Eos # (Auto) Baso # (Auto) Absolute Nucleated RBC Nucleated RBC % VBG pH 7.435 H VBG pCO2 36.8 L VBG pO2 68.4 H VBG HCO3 24.2 VBG Total CO2 25.3 VBG O2 Saturation 92.1 H VBG Base Excess 0.0 Sodium Potassium Chloride Carbon Dioxide Anion Gap BUN Creatinine Estimated GFR (MDRD) Glucose Calcium Total Bilirubin AST ALT Alkaline Phosphatase Troponin I High Sens 22.6 H* B-Natriuretic Peptide Total Protein Albumin Globulin Albumin/Globulin Ratio Lipase Nasal Adenovirus (PCR) NOT DETECTED Nasal B. parapertussis DNA (PCR) NOT DETECTED Nasal Coronavir 229E PCR NOT DETECTED Nasal Coronavir HKU1 PCR NOT DETECTED Nasal Coronavir NL63 PCR NOT DETECTED Nasal Coronavir OC43 PCR NOT DETECTED Nasal Enterovir/Rhinovir PCR NOT DETECTED Nasal Influenza B PCR NOT DETECTED Nasal Influenza A PCR NOT DETECTED Nasal Parainfluen 1 PCR NOT DETECTED Nasal Parainfluen 2 PCR NOT DETECTED Nasal Parainfluen 3 PCR NOT DETECTED Nasal Parainfluen 4 PCR NOT DETECTED Nasal RSV (PCR) NOT DETECTED Nasal B.pertussis DNA PCR NOT DETECTED Nasal C.pneumoniae (PCR) NOT DETECTED [place] Metapneumo PCR NOT DETECTED Nasal M.pneumoniae (PCR) NOT DETECTED Nasal SARS-CoV-2 (PCR) NOT DETECTED PD MEDICAL DECISION MAKING - ED course ED course: 75yM p/w symptomatic anemia, d/w Dr. Maki who will perform endoscopy. Departure - Departure Disposition: ED Transfer to [facility] Clinical Impression: Anemia, Dyspnea on exertion, Weakness, Lightheadedness, Afib
[2021-09-08 21:59] LABS: B. PARAPERTUSSIS- RESP PCR PAN NOT DETECTED; B. PERTUSSIS- RESP PCR PANEL NOT DETECTED; C. PNEUMONIAE- RESP PCR PANEL NOT DETECTED; CORONAVIRUS 229E-RESP PCR NOT DETECTED; CORONAVIRUS HKU1-RESP PCR NOT DETECTED; CORONAVIRUS NL63-RESP PCR NOT DETECTED; CORONAVIRUS OC43-RESP PCR NOT DETECTED; HUMAN METAPNEUMOVIRUS NOT DETECTED; INFLUENZA A- RESP PCR PANEL NOT DETECTED; INFLUENZA B - RESP PCR PANEL NOT DETECTED; M. PNEUMONIAE- RESP PCR PANEL NOT DETECTED; PARAINFLUENZA VIRUS 1 NOT DETECTED; PARAINFLUENZA VIRUS 2 NOT DETECTED; PARAINFLUENZA VIRUS 3 NOT DETECTED; PARAINFLUENZA VIRUS 4 NOT DETECTED; RHINOVIRUS/ENTEROVIRUS NOT DETECTED; RSV- RESP PCR PANEL NOT DETECTED; SARS-CoV-2 -RESP PCR PANEL NOT DETECTED
--- NOTE | 2021-09-08 22:39 | XRAY Report ---
PROCEDURE: Chest 1 View X-Ray INDICATIONS: Chest pain TECHNIQUE: One view of the chest was acquired. COMPARISON: None. FINDINGS: Surgical changes and devices: None. Lungs and pleura: Prominence of the central pulmonary vasculature is seen with haziness in the mid t o lower lung zones. The costophrenic angles are clear without signs of significant pleural effusion. No pneumothorax Mediastinum: Mediastinal contours appear normal. Heart size is mildly enlarged. Bones and chest wall: No suspicious bony lesions. Overlying soft tissues appear unremarkable. IMPRESSION: Mild cardiomegaly with prominence of the central pulmonary vasculature is suspicious for mild pulmona ry edema/congestive heart failure. Atypical or viral pneumonia could appear similarly. Reviewed by: Dante Alvarado MD on 09/08/2021 10:37 PM PST Approved by: Dante Alvarado MD on 09/08/2021 10:37 PM PST Station ID: [id number]
[2021-09-08] MEDS ORDERED: LIDOCAINE-MPF 2% 5 ML VIAL ONE (22:49)
[2021-09-08] MEDS ORDERED: PROPOFOL 200 MG/20 ML VIAL IVP ONE (22:49)
[2021-09-08] MEDS ORDERED: LIDOCAINE TOPICAL 4% 50 ML BOTTLE ONE (22:50)
--- NOTE | 2021-09-08 23:01 | ANESTHESIA ---
Pre-Anesthesia VS, & Labs - Diagnosis anemia - Procedure EGD Vital Signs: Temp Pulse Resp BP Pulse Ox 37.4 C 86 30 H 140/70 H 93 09/08/21 20:24 09/08/21 21:36 09/08/21 21:36 09/08/21 21:36 09/08/21 21:36 Height: 5 ft 10 in Weight (kg): 135.171 kg Body Mass Index: 42.7 BMI Classification: Morbidly Obese - Lab Results Current Lab Results: Laboratory Tests 09/08/21 20:38: VBG pH 7.435 H, VBG pCO2 36.8 L, VBG pO2 68.4 H, VBG HCO3 24.2, VBG Total CO2 25.3, VBG O2 Saturation 92.1 H, VBG Base Excess 0.0 09/08/21 20:38: Troponin I High Sens 22.6 H* 09/08/21 20:38: Sodium 135, Potassium 4.2, Chloride 104, Carbon Dioxide 23, Anion Gap 8.0, BUN 31 H, Creatinine 1.4 H, Estimated GFR (MDRD) 50 L, Glucose 132 H, Calcium 8.0 L, Total Bilirubin 0.9, AST 16, ALT 16, Alkaline Phosphatase 48, Total Protein 6.3 L, Albumin 2.9 L, Globulin 3.4, Albumin/Globulin Ratio 0.9 L, Lipase 192 H 09/08/21 20:38: WBC 8.0, RBC 2.71 L, Hgb 7.8 L, Hct 24.3 L, MCV 89.7, MCH 28.8, MCHC 32.1, RDW 15.6 H, Plt Count 140, MPV 9.0, Neut # (Auto) 7.0 H, Lymph # (Auto) 0.6 L, [place] # (Auto) 0.4, Eos # (Auto) 0.0, Baso # (Auto) 0.0, Absolute Nucleated RBC 0.00, Nucleated RBC % 0.0 09/08/21 20:20: B-Natriuretic Peptide 744 H Fish Bones: 09/08/21 20:38 09/08/21 20:38 Home Medications and Allergies Home Medications: Ambulatory Orders Multivitamin 1 tab PO DAILY 09/08/21 Amlodipine Besylate 5 mg PO BID 11/27/12 Atorvastatin Calcium [Lipitor] 20 mg PO DAILY 11/27/12 Folic Acid 1 mg PO DAILY 11/27/12 Carvedilol [Coreg] 37.5 mg PO BID 08/02/21 Ferrous Gluconate 324 mg PO DAILY 08/02/21 hydrALAZINE [Apresoline] 50 mg PO TID 08/02/21 Multivitamin 1 tab PO DAILY 09/08/21 Allergies/Adverse Reactions: Allergies Allergy/AdvReac Type Severity Reaction Status Date / Time lisinopril Allergy Severe Respiratory Verified 09/08/21 20:29 Thiazides Allergy unknown Verified 09/08/21 20:29 Anes History & Medical History - Anesthetic History Anesthesia Complications: reports: No previous complications - Medical History Cardiovascular: reports: Hypertension, High cholesterol, Atrial fibrillation, Murmur, Valve disorder Pulmonary: reports: Sleep apnea, CPAP use Gastrointestinal: reports: None Urinary: reports: None Musculoskeletal: reports: Osteoarthritis Endocrine/Autoimmune: reports: None Skin: reports: None Smoking Status: Never smoker - Surgical History General: reports: Colonoscopy Cardiothoracic: reports: Valve replacement, Vascular surgery Exam General: Alert, Oriented x3, Cooperative Dental: WNL Mouth Opening: Greater than 4 Fingerbreadths Neck Mobility: Normal Mallampati classification: II Thyromental Distance: greater than 6 cm Respiratory: Lungs clear Cardiovascular: Normal S1, Normal S2 (a fib) Plan Anesthesia Type: Total IV Consent for Procedure(s) Verified and Reviewed: Yes Code Status: Attempt Resuscitation ASA classification: 3-Severe systemic disease Is this case an emergency?: Yes
[2021-09-08] MEDS ORDERED: LACTATED RINGERS 750 ML IV ONE (23:20)
[2021-09-08] MEDS ORDERED: HYDROmorphone 0.5 MG/0.5 ML SYRINGE IVP PRN (23:24)
[2021-09-08] MEDS ORDERED: ONDANSETRON 4 MG/2 ML VIAL IVP PRN (23:24)
[2021-09-08] MEDS ORDERED: METOCLOPRAMIDE 10 MG/2 ML VIAL IVP PRN (23:24)
[2021-09-08] MEDS ORDERED: ATROPINE ABBOJECT 1 MG/10 ML SYRINGE IVP PRN (23:24)
[2021-09-08] MEDS ORDERED: fentaNYL 100 MCG/2 ML VIAL IVP PRN (23:24)
[2021-09-08] MEDS ORDERED: ePHEDrine 50 MG/ML VIAL IVP PRN (23:24)
[2021-09-08] MEDS ORDERED: NALOXONE 0.4 MG/ML VIAL IVP PRN (23:24)
[2021-09-08] MEDS ORDERED: MORPHINE 2 MG/ML CARPUJECT IVP PRN (23:24)
--- NOTE | 2021-09-08 23:34 | ANESTHESIA POST OP EVALUATION ---
Anesthesia Post Eval - Post Anesthesia Eval Vitals: Last Vital Signs Temp 37.1 C 09/08/21 23:30 Pulse 94 09/08/21 23:30 Resp 20 09/08/21 23:30 BP 139/72 H 09/08/21 23:30 Pulse Ox 93 09/08/21 23:30 CV Function Including HR & BP: Stable Pain Control: Satisfactory Nausea & Vomiting: Negative Mental Status: Baseline Respiratory Status: Airway Patent Hydration Status: Satisfactory Anesthesia Complications: None
[2021-09-08] MEDS ORDERED: LACTATED RINGERS 1,000 ML IV SCH (23:45)
[2021-09-09] MEDS ORDERED: SODIUM CHLORIDE FLUSH 0.9% 10 ML SYRINGE IVP PRN (00:13)
[2021-09-09] MEDS ORDERED: ONDANSETRON 4 MG/2 ML VIAL IVP PRN (00:13)
--- NOTE | 2021-09-09 00:28 | HISTORY & PHYSICAL EXAMINATION ---
Chief Complaint - Chief Complaint Chief Complaint: ROSE, lightheadedness History of Present Illness - Admitted From Admitted From:: ED - History Obtained From History obtained from: Dr Maki and chart review - History of Present Illness HPI Comment/Other: This is a 75-year-old white male with history of arthritis on sulfasalazine, hypertension on several meds and history of aortic stenosis and underwent TAVR in 2018. Five weeks ago the patient underwent elective colonoscopy done by Dr Maki, and several polyps were removed. During the procedure he went into A. fib. He was seen in consultation by the Hospitalist for the Afib. He was started on Eliquis. The PCP stopped his Eliquis at a first office visit, about 4 weeks ago. Patient has been complaining of dyspnea on exertion for the past several weeks, has leg edema chronically for 30 years and has new lightheadedness today and therefore came to the ED. He denied syncope, chest pain, cough or fever. He was found to have a hemoglobin of 7.8 (and just 5 weeks ago his hemoglobin was 12), BNP 733, chest x-ray showing mild CHF. He is in A. fib with rate 90-120. The patient had a consultation by Dr. Maki of General Surg, who took him from the ER directly to the OR for an EGD tonight. The findings were that of specks of blood seen in the stomach but no acute bleeding source however a gastric mass was seen subepithelially. The patient is being placed in Observation for managing his symptomatic anemia, possibly need for blood transfusion, evaluating the gastric mass, managing his A. fib with slightly rapid rate, treating new onset of CHF and to work-up lightheadedness. The patient wishes to be DNR/DNI. History - Past Medical History Cardiovascular: reports: Hypertension, High cholesterol, Atrial fibrillation, Murmur, Valve disorder Respiratory: reports: Sleep apnea, CPAP use Neuro: reports: None Endocrine/Autoimmune: reports: None GI: reports: None : reports: Nocturia HEENT: reports: Glaucoma, Chronic hearing loss Psych: reports: None Musculoskeletal: reports: Osteoarthritis Derm: reports: None MRSA Hx?: No Other Past Medical History: (DISH). Disfuse iodopathic skeletal...deposit of calcium salts - Past Surgical History General: reports: Colonoscopy Cardiovascular: reports: Valve replacement, Vascular surgery HEENT: reports: Tonsil/Adenoidectomy - Family & Social History Family History Comment/Other: Mom and dad with any significant arrhythmia history or thyroid disease or history of pulmonary embolism. Siblings also without any significant history as above. Children healthy Living arrangement: At home Living Situation: With spouse/s.o. Social History Notes: He smoked for about 10 years. Probably close to 1 pack/day. Quit 30 years ago. Drinks 1 ounce of alcohol a day. Never had a problem with alcohol abuse. 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 his live in their own home and they are independent. - Substance History Use: Uses substance without health or social issues: Alcohol - POLST Patient has POLST: Yes POLST Status: Limited Interventions Meds/Allgy - Home Medications Home Medications: Ambulatory Orders Medication Instructions Recorded Confirmed Amlodipine Besylate 5 mg PO BID 11/27/12 09/08/21 Atorvastatin Calcium [Lipitor] 20 mg PO DAILY 11/27/12 09/08/21 Folic Acid 1 mg PO DAILY 11/27/12 09/08/21 Carvedilol [Coreg] 37.5 mg PO BID 08/02/21 09/08/21 Ferrous Gluconate 324 mg PO DAILY 08/02/21 09/08/21 hydrALAZINE [Apresoline] 50 mg PO TID 08/02/21 09/08/21 Apixaban [Eliquis] 5 mg PO BID #60 tablet 08/04/21 09/08/21 Multivitamin 1 tab PO DAILY 09/08/21 09/08/21 - Allergies Allergies/Adverse Reactions: Allergies Allergy/AdvReac Type Severity Reaction Status Date / Time lisinopril Allergy Severe Respiratory Verified 09/08/21 20:29 Thiazides Allergy unknown Verified 09/08/21 20:29 Review of Systems - Cardiovascular Cariovascular: reports: Edema (for 30 years), Lightheadedness, Exertional dyspnea - Respiratory Respiratory: reports: Other (Uses CPAP) - All Other Systems All Other Systems: reports: Reviewed and negative Exam - Vital Signs Reviewed Vital Signs: Yes Vital Signs: Vital Signs x48h Temp Pulse Pulse Resp BP BP Pulse Ox 09/08/21 23:45 37.2 C 90 86 22 132/68 H 152/68 H 94 09/08/21 23:40 37.1 C 95 22 138/62 H 92 09/08/21 23:35 37.1 C 95 20 138/55 H 93 09/08/21 23:30 37.1 C 94 20 139/72 H 93 09/08/21 23:25 89 21 130/66 91 L 09/08/21 23:20 88 20 114/87 H 92 09/08/21 23:18 37.5 C 99 20 120/68 93 09/08/21 21:36 86 30 H 140/70 H 93 09/08/21 20:24 37.4 C 96 22 150/69 H 97 - Physical Exam General Appearance: positive: No acute distress, Alert Eyes Bilateral: positive: Normal inspection, EOMI ENT: positive: ENT inspection nml, No signs of dehydration Neck: positive: Nml inspection, No JVD (but exam difficult due to long carrizales) Respiratory: positive: No respiratory distress, Breath sounds nml Cardiovascular: positive: Irregularly irregular, Tachycardia, Systolic murmur Abdomen: positive: Non-tender, Other (Disteneded and hyperechoic air from EGD?)) Skin: positive: Warm, Dry, Pallor Extremities: positive: Non-tender, Other (1+ edema to knees) Neurologic/Psychiatric: positive: Oriented x3 (Non-focal) Conclusion/Plan - Problem List (1) Dyspnea on exertion Conclusion/Plan: This is likely from his marked anemia and new onset of CHF. We will start gentle IV diuretics, follow I's and O's, daily weights and daily electrolytes and magnesium. Will follow his CBC every 12 hours, transfuse if it goes under 7. We will check iron stores, B12 and folate levels and replace if low. We will obtain an Echo to evaluate for any valvular or TAVR abnormality or newly depressed EF. front desk monitor (2) CHF (congestive heart failure) Conclusion/Plan: With findings of mild CHF on chest x-ray and elevated BNP of 733, will obtain an Echo to evaluate if the valve is functioning properly and what the LVEF is now. Will cycle troponins. Will start iv Lasix daily. Follow BNP daily. Qualifiers: Heart failure chronicity: acute (3) Anemia Conclusion/Plan: Likely the source is GI bleeding since old blood was seen in the stomach on EGD. Dr. Maki recommends treating/starting prophylaxis with a PPI. We will not start Eliquis or other anticoagulation for his Kristofer burnett. Will obtain a CT of abdomen to evaluate the gastric mass which may also be a source of bleeding. (4) Gastric mass Conclusion/Plan: Will obtain a CT of abdomen to evaluate the gastric mass, which may also be a source of bleeding. (5) Lightheadedness Conclusion/Plan: This is likely from use of his blood pressure meds on top of his marked anemia. Will follow his hemoglobin every 12 hours, transfuse if goes under 7. Will obtain orthostatic vital sign checks. Will carefully resume his blood pressure meds, once they are reconciled, and parameters for holding will be needed. Monitor on telemetry. Obtain Echocardiogram. (6) Afib Conclusion/Plan: Kristofer burnett was first noted when he was undergoing colonoscopy 5 weeks ago. He was put on Eliquis then, but it was stopped about 2 days later by his PCP, possibly concerned about bleeding after having polypectomy. He told Dr Maki today he no longer takes it, but it was reconciled (in ED?) as being taken. We will continue with his Carvedilol for rate control. He is on a high-dose of 37.5 mg twice daily but this is upper limit of acceptable for patient with this large BMI Will add Cardizem po and stop his Amlodipine. Will not start an anticoagulant currently since there is concern of acute or subacute GI blood loss anemia. Check a TSH, to R/O hyperthyroidism. (7) S/P TAVR (transcatheter aortic valve replacement) Conclusion/Plan: The last Echo done here was before the TAVR, in 2017 which showed his severe aortic stenosis. he gets yearly Echos, he says and the next is due in October. With findings of mild CHF on chest x-ray and elevated BNP of 733, will obtain an Echo now to evaluate if the valve is functioning properly and what the LVEF is now. (8) CKD (chronic kidney disease) Conclusion/Plan: His creatinine has been 1.3-1.4 since January 2021. Avoid nephrotoxins (9) HTN (hypertension) Conclusion/Plan: Will carefully resume his blood pressure meds, once they are reconciled, and parameters for holding will be needed. But we will add Cardizem po (for extra rate control) and stop his Amlodipine. (10) Arthritis Conclusion/Plan: Apparently, he was put on sulfasalazine for this. The details are not known (11) Morbid obesity with BMI of 40.0-44.9, adult Conclusion/Plan: As per Hx - Lab Results Fish Bones: 09/08/21 20:38 09/08/21 20:38 - Diagnostic Imaging Results Diagnostic Imaging Results: positive: Final report reviewed
[2021-09-09] MEDS: SODIUM CHLORIDE FLUSH 0.9% 10 ML SYRINGE IVP SCH ×3 (00:35→19:27)
[2021-09-09] MEDS ORDERED: diltiaZEM 30 MG TABLET PO SCH (02:00)
[2021-09-09] MEDS: ACETAMINOPHEN 325 MG TABLET PO PRN ×2 (02:39→20:24)
[2021-09-09] MEDS ORDERED: IOVERSOL 320 100 ML VIAL IVP ONE (05:31)
[2021-09-09] MEDS ORDERED: IOVERSOL 320 50 ML VIAL ONE (05:31)
[2021-09-09 06:08] LABS: HCT - HEMATOCRIT 23.8 % (42.0-52.0); HGB - HEMOGLOBIN 7.6 g/dL (14.0-18.0); MEAN CORPUSCULAR HEMOGLOBIN 28.9 pg (27.0-31.0); MEAN CORPUSCULAR HGB CONC 31.9 g/dL (32.0-36.0); MEAN CORPUSCULAR VOLUME 90.5 fL (80.0-94.0); MEAN PLATELET VOLUME 9.1 fL (7.4-11.4); RED BLOOD COUNT 2.63 10^6/uL (4.70-6.10); RED CELL DISTRIBUTION WIDTH 15.7 % (12.0-15.0)
[2021-09-09] MEDS: PANTOPRAZOLE 40 MG TABLET PO SCH (06:13)
[2021-09-09 06:22] LABS: CALCIUM 8.3 mg/dL (8.5-10.3); CREATININE 1.4 mg/dL (0.6-1.2); POTASSIUM 4.5 mmol/L (3.5-5.0)
[2021-09-09 06:31] LABS: % IRON SATURATION 6 % (20-50); IRON 12 ug/dL (45-182); TOTAL IRON BINDING CAPACITY 206 ug/dL (250-450); TRANSFERRIN 147 mg/dL (180-329)
[2021-09-09 06:39] LABS: THYROID STIMULATING HORMONE 0.66 uIU/mL (0.34-5.60)
[2021-09-09] MEDS: IOVERSOL 320 100 ML VIAL IVP ONE (06:52)
[2021-09-09] MEDS ORDERED: IOVERSOL 320 50 ML VIAL PO ONE (06:52)
[2021-09-09] MEDS: FUROSEMIDE 20 MG/2 ML VIAL IVP SCH (07:59)
[2021-09-09] MEDS: MULTIVITAMIN W/MINERALS TABLET PO SCH (07:59)
[2021-09-09] MEDS: diltiaZEM 30 MG TABLET PO SCH ×3 (07:59→20:28)
[2021-09-09] MEDS: FOLIC ACID 1 MG TABLET PO SCH (08:00)
[2021-09-09] MEDS: carvediloL 12.5 MG TABLET PO SCH ×2 (08:00→20:25)
[2021-09-09] MEDS: FERROUS GLUCONATE 324 MG TABLET PO SCH (08:00)
--- NOTE | 2021-09-09 10:10 | CT Report ---
PROCEDURE: Abdomen/Pelvis W INDICATIONS: Gastric mass CONTRAST: IV CONTRAST: Optiray 320 ml: 100 PO CONTRAST: Optiray 320 ml50 TECHNIQUE: After the administration of oral and intravenous contrast, 5 mm thick sections acquired from the diap hragms to the symphysis. 5 mm thick coronal and sagittal reformats were acquired. For radiation dos e reduction, the following was used: automated exposure control, adjustment of mA and/or kV accordin g to patient size. COMPARISON: CT abdomen pelvis 08/02/19. FINDINGS: Image quality: Excellent. ABDOMEN: Lung bases: There are small bilateral pleural effusions with associated compressive atelectasis and consolidation posteriorly in the lower lobes. Scattered foci of calcifications within the lungs are c onsistent with sequelae of old granulomatous disease. There is mild septal thickening with bilateral heterogeneous areas of groundglass opacity suggestive of pulmonary edema. There is a right perihilar nodule or hilar lymph node measuring up to 2.7 x 2.4 cm in transverse dimension on series 4 image 4. The findings are suspicious for a metastatic pulmonary nodule or metastatic hilar lymph node. There i s also a peripheral subpleural nodule in the right middle lobe measuring up to 0.7 cm on series 4 amanda ge 10 which is nonspecific but suspicious for metastatic disease. Heart size is normal. There is a pr osthetic aortic valve. There are enlarged zygoesophageal and paraesophageal lymph nodes within the in ferior mediastinum measuring up to 1.9 cm in short axis. Solid organs: Evaluation of the liver demonstrates no focal hepatic lesions. Gallbladder demonstrate s multiple calcified nodes without wall thickening or pericholecystic fluid. Biliary system is non di lated. The spleen is enlarged, measuring up to 16.8 cm. pancreas enhances normally without peripancr eatic fat stranding or fluid collections. There is a left adrenal nodule measuring up to 2.6 cm which appears similar in size compared to the prior CT study Kidneys demonstrate no hydronephrosis. There is exophytic left renal cyst measuring up to 5.2 cm. A nonobstructing left renal stone measures up to 0.7 cm. Peritoneum and bowel: The stomach demonstrates no discrete mass lesion. There is normal wall thickne ss. Bowel loops demonstrate normal wall thickness and caliber. No evidence of appendicitis. There are a few colonic diverticula without acute diverticulitis No free fluid or air. Nodes and vessels: No retroperitoneal or mesenteric adenopathy by size criteria. Aorta and inferior vena cava are normal in size. Miscellaneous: There is a small fat-containing periumbilical hernia. PELVIS: Genitourinary: Bladder wall thickness is normal. Miscellaneous: No inguinal hernias or adenopathy. Bones: No suspicious bony lesions. No vertebral body compression fractures. IMPRESSION: 1. No discrete gastric mass identified on the current study. 2. Mediastinal lymphadenopathy within the visualized lower thorax as well as an enlarged right hilar lymph node or right perihilar pulmonary nodule. Findings are highly suspicious for metastatic disease . Recommend dedicated chest CT when clinically feasible. 3. Small bilateral pleural effusions with associated compressive atelectasis and possible consolidati on in the lower lobes. 4. Small 0.7 mm right middle lobe nodule is nonspecific but metastatic disease is not excluded. 5. Bilateral heterogeneous round glass opacities and mild septal thickening compatible with pulmonary edema. 6. Left adrenal nodule measuring up to 2.6 cm and indeterminate but appears similar to the prior stud y suggestive of a benign process such as an adenoma. Further characterization may be obtained with an nahomy protocol MRI or CT if clinically indicated. 7. Cholelithiasis. Reviewed by: Oseas Garzon MD on 09/09/2021 10:08 AM [facility] Approved by: Oseas Garzon MD on 09/09/2021 10:08 AM PST Station ID: [id number]
[2021-09-09] MEDS ORDERED: FUROSEMIDE 20 MG/2 ML VIAL IVP ONE (14:00)
[2021-09-09 14:58] LABS: HGB - HEMOGLOBIN 7.7 g/dL (14.0-18.0); MEAN CORPUSCULAR HEMOGLOBIN 28.8 pg (27.0-31.0); MEAN CORPUSCULAR HGB CONC 32.1 g/dL (32.0-36.0); MEAN CORPUSCULAR VOLUME 89.9 fL (80.0-94.0); MEAN PLATELET VOLUME 8.8 fL (7.4-11.4); RED BLOOD COUNT 2.67 10^6/uL (4.70-6.10); RED CELL DISTRIBUTION WIDTH 15.7 % (12.0-15.0); WHITE BLOOD COUNT 7.3 x10^3/uL (4.8-10.8)
[2021-09-10] MEDS: SODIUM CHLORIDE FLUSH 0.9% 10 ML SYRINGE IVP SCH ×2 (00:07→08:13)
[2021-09-10] MEDS: diltiaZEM 30 MG TABLET PO SCH ×3 (02:05→13:12)
[2021-09-10 05:40] LABS: BASOPHILS % (AUTO) 0.2 %; EOSINOPHILS # (AUTO) 0.1 10^3/uL (0.0-0.7); EOSINOPHILS % (AUTO) 1.6 %; HCT - HEMATOCRIT 23.7 % (42.0-52.0); HGB - HEMOGLOBIN 7.5 g/dL (14.0-18.0); LYMPHOCYTES % (AUTO) 16.4 %; MEAN CORPUSCULAR HEMOGLOBIN 28.2 pg (27.0-31.0); MEAN CORPUSCULAR HGB CONC 31.6 g/dL (32.0-36.0); MEAN CORPUSCULAR VOLUME 89.1 fL (80.0-94.0); MEAN PLATELET VOLUME 8.9 fL (7.4-11.4); MONOCYTES # (AUTO) 0.6 10^3/uL (0.0-1.0); MONOCYTES % (AUTO) 8.7 %; NEUTROPHILS # (AUTO) 4.6 10^3/uL (1.5-6.6); NEUTROPHILS % (AUTO) 72.8 %; PLT - PLATELET COUNT 143 10^3/uL (130-450); RED BLOOD COUNT 2.66 10^6/uL (4.70-6.10); RED CELL DISTRIBUTION WIDTH 15.7 % (12.0-15.0); WHITE BLOOD COUNT 6.3 x10^3/uL (4.8-10.8)
[2021-09-10 05:46] LABS: CALCIUM 8.3 mg/dL (8.5-10.3); CREATININE 1.3 mg/dL (0.6-1.2); POTASSIUM 4.1 mmol/L (3.5-5.0)
[2021-09-10] MEDS: PANTOPRAZOLE 40 MG TABLET PO SCH (06:13)
[2021-09-10] MEDS ORDERED: IOVERSOL 320 100 ML VIAL IVP ONE (07:21)
[2021-09-10] MEDS: FOLIC ACID 1 MG TABLET PO SCH (08:12)
[2021-09-10] MEDS: carvediloL 12.5 MG TABLET PO SCH (08:12)
[2021-09-10] MEDS: FUROSEMIDE 20 MG/2 ML VIAL IVP SCH (08:12)
[2021-09-10] MEDS: FERROUS GLUCONATE 324 MG TABLET PO SCH (08:13)
[2021-09-10] MEDS: MULTIVITAMIN W/MINERALS TABLET PO SCH (08:13)
[2021-09-10] MEDS: IOVERSOL 320 100 ML VIAL IVP ONE (11:12)
--- NOTE | 2021-09-10 11:24 | DISCHARGE SUMMARY ---
Discharge Summary Admit Date: 09/10/21 Discharge Date: 09/11/21 Discharging Provider: Christine Goldberg Primary Care Provider: Maya Mitchell Code Status: Do Not Attempt Resuscitation Condition at Discharge: Stable Discharge Disposition: 01 Home, Self Care - DIAGNOSES Admission Diagnoses: Dyspnea on exertion CHF Anemia Gastric mass Lightheadedness Atrial fibrillation Status post TAVR Chronic kidney disease Hypertension Arthritis Morbid obesity with BMI of 40.0-44.9, adult Discharge Diagnoses with Status of Each Condition: Dyspnea on exertion: Acute. Imrpved after transfusion of 1 unit PRBC and diuresis CHF: Improved after diuresis with lasix Anemia: Transfused 1 unit PRBC. Continue Ferrous gluconate daily Gastric mass: None found on CT of chest, abdomen and pelvis Lightheadedness: Improve/ Resolved Atrial fibrillation: Chronic. Continue coreg Status post TAVR Chronic kidney disease Hypertension: Chronic. On Coreg Arthritis: Chronic Morbid obesity with BMI of 40.0-44.9, adult - HPI History of Present Illness: This is a 75-year-old white male with history of arthritis on sulfasalazine, hypertension on several meds and history of aortic stenosis and underwent TAVR in 2018. Five weeks ago the patient underwent elective colonoscopy done by Dr Maki, and several polyps were removed. During the procedure he went into A. fib. He was seen in consultation by the Hospitalist for the Afib. He was started on Eliquis. The PCP stopped his Eliquis at a first office visit, about 4 weeks ago. Patient has been complaining of dyspnea on exertion for the past several weeks, has leg edema chronically for 30 years and has new lightheadedness today and therefore came to the ED. He denied syncope, chest pain, cough or fever. He was found to have a hemoglobin of 7.8 (and just 5 weeks ago his hemoglobin was 12), BNP 733, chest x-ray showing mild CHF. He is in A. fib with rate 90-120. The patient had a consultation by Dr. Maki of General Surg, who took him from the ER directly to the OR for an EGD tonight. The findings were that of specks of blood seen in the stomach but no acute bleeding source however a gastric mass was seen subepithelially. The patient is being placed in Observation for managing his symptomatic anemia, possibly need for blood transfusion, evaluating the gastric mass, managing his A. fib with slightly rapid rate, treating new onset of CHF and to work-up lightheadedness. The patient wishes to be DNR/DNI. - HOSPITAL COURSE Hospital Course: Iron studies showed iron level of 12, TIBC 206, percentage saturation 6, transferrin 147. The patient was is on ferrous gluconate 324 mg p.o. daily. We will continue iron supplement upon discharge. Patient's hemoglobin was monitored. On 09/10/2021 hemoglobin in the morning was 7.5. As a result he was transfused 1 unit of packed red blood cells. Hemoglobin after transfusion was 8.2. He was treated with Lasix 20 mg IV twice daily through the course of his hospit al stay. Will discharge patient with a prescription of Lasix 20 mg p.o. daily. It is expected that his primary care physician will continue management of Lasix. By the afternoon of 09/09/2021 he had an oxygen desaturation study and was determined not to need supplemental oxygen does supplemental oxygen was discontinued. CT of the abdomen/pelvis was negative for any discrete gastric mass. However mediastinal lymphadenopathy within the visualized lower thorax as well as an enlarged right hilar lymph node or right perihilar pulmonary nodule was noted. It was highlighted that this findings are highly suspicious for metastatic disease. As a result a dedicated CT of the chest was recommended. CT of the chest was done with the following results: Mediastinal and right perihilar adenopathy noted. 7 mm nonspecific right lower lobe pleural-based nodule noted. Small to moderate bilateral pleural effusion and hazy bilateral groundglass opacities noted in the setting of mild cardiomegaly this is most likely pulmonary edema secondary to CHF. Given his hypoxia, lower extremity edema, heart murmur and elevated BNP a 2D echocardiogram was done on 09/10/2021 There is mild concentric left ventricular hypertrophy. Overall left ventricular systolic function is normal with an ejection fraction of 70-75%. No regional wall motion abnormality noted. Right ventricular enlargement was moderate.. The right ventricular systolic function is normal. Moderate to severe right atrial enlargement. Severe increase in the left atrial volume index. Bioprosthetic valve in the aortic position with borderline elevated velocities noted: Max velocity 3.2 m/s, peak/mean pressure gradient of 40 mmHg / 22 mmHg, the aortic valve area by continuity equation is 2.22 cm. There was no evidence of regurgitation. There was no mitral stenosis. Moderate mitral annular calcification noted. There is trace to mild mitral regurgitation. RVSP at rest was 62 mmHg. There was no mass or thrombus. There was no pleural effusion noted. Patient was discharged in stable condition to follow-up with his primary care physician as needed. - ALLERGIES Allergies/Adverse Reactions: Allergies Allergy/AdvReac Type Severity Reaction Status Date / Time lisinopril Allergy Severe Respiratory Verified 09/08/21 20:29 Thiazides Allergy unknown Verified 09/08/21 20:29 - MEDICATIONS Home Medications: Ambulatory Orders Medication Instructions Recorded Confirmed Amlodipine Besylate 5 mg PO BID 11/27/12 09/08/21 Atorvastatin Calcium [Lipitor] 20 mg PO DAILY 11/27/12 09/08/21 Folic Acid 1 mg PO DAILY 11/27/12 09/08/21 Carvedilol [Coreg] 37.5 mg PO BID 08/02/21 09/08/21 Ferrous Gluconate 324 mg PO DAILY 08/02/21 09/08/21 hydrALAZINE [Apresoline] 50 mg PO TID 08/02/21 09/08/21 Apixaban [Eliquis] 5 mg PO BID #60 tablet 08/04/21 09/08/21 Multivitamin 1 tab PO DAILY 09/08/21 09/08/21 - PHYSICAL EXAM AT DISCHARGE General Appearance: positive: No acute distress, Alert Eyes Bilateral: positive: PERRL, EOMI ENT: positive: No signs of dehydration Neck: positive: No JVD, Trachea midline Respiratory: positive: Chest non-tender, No respiratory distress, Other (Mild crackles in lung bases) Cardiovascular: positive: Regular rate & rhythm, Systolic murmur Abdomen: positive: Non-tender, No organomegaly, Nml bowel sounds, No distention. negative: Guarding, Rebound Back: positive: Nml inspection Skin: positive: No rash, Warm, Dry Extremities: positive: Non-tender, Pedal edema (+1 edema) Neurologic/Psychiatric: positive: Oriented x3, Mood/affect nml - LABS Result Diagrams: 09/10/21 05:29 09/10/21 05:29 - TIME SPENT Time Spent in Discharge (Minutes): 20
--- NOTE | 2021-09-10 11:25 | Discharge Plan ---
Discharge Plan Problem Reviewed?: Yes Disposition: Home, Self Care Condition: Stable Prescriptions: Furosemide [Lasix] 20 mg PO DAILY 30 Days #30 tablet Diet: Cardiac Activity Restrictions: Activity as Tolerated Assistance Devices: Cane Health Concerns: You presented to the ED With lightheadedness and dyspnea on exertion. He was seen by general surgery and taken to the OR for an EGD. In the course of the EGD was suspected that he had an intra-abdominal mass pushing on stomach. You were admitted for further work-up of a potential mass and anemia as well as your shortness of breath. You had a CT of the chest and abdomen which was unremarkable/ negative for any malignancy. You had a CT of the chest, abdomen and pelvis done in the past 4 years ago. You also had a consult with a e d tech after which you underwent lymph node biopsies. This with noted to be negative for any malignancy. You may follow-up with pulmonary as needed. You also had a 2D echocardiogram done which showed a normal ejection fraction. You were treated with Lasix for diuresis during the course of your hospital stay. You were prescribed Lasix 20 mg p.o. daily upon discharge. You are to watch your sodium/salt intake. Your hemoglobin was as low as 7.5. As a result you were transfused 1 unit of packed red blood cells. By discharge her hemoglobin was 8.2. You are to continue taking your ferrous gluconate 325 mg tablet daily. You are being discharged in stable condition you may follow-up with your primary care physician as needed. The above plan was explained to you, you expressed understanding and are in agreement with the plan. No Smoking: If you smoke, Please STOP! Call for help. Follow-up with: Maya Mitchell ARNP [Primary Care Provider] -
[2021-09-10] MEDS ORDERED: FUROSEMIDE 20 MG/2 ML VIAL IVP ONE (13:00)
[2021-09-10 13:12] VITALS: BP 128/63
[2021-09-10 13:15] LABS: BASOPHILS % (AUTO) 0.3 %; EOSINOPHILS # (AUTO) 0.1 10^3/uL (0.0-0.7); EOSINOPHILS % (AUTO) 0.9 %; HCT - HEMATOCRIT 25.4 % (42.0-52.0); HGB - HEMOGLOBIN 8.2 g/dL (14.0-18.0); LYMPHOCYTES # (AUTO) 0.7 10^3/uL (1.5-3.5); LYMPHOCYTES % (AUTO) 11.1 %; MEAN CORPUSCULAR HEMOGLOBIN 29.1 pg (27.0-31.0); MEAN CORPUSCULAR HGB CONC 32.3 g/dL (32.0-36.0); MEAN CORPUSCULAR VOLUME 90.1 fL (80.0-94.0); MEAN PLATELET VOLUME 8.4 fL (7.4-11.4); MONOCYTES # (AUTO) 0.5 10^3/uL (0.0-1.0); MONOCYTES % (AUTO) 8.1 %; NEUTROPHILS # (AUTO) 5.3 10^3/uL (1.5-6.6); NEUTROPHILS % (AUTO) 79.2 %; PLT - PLATELET COUNT 146 10^3/uL (130-450); RED BLOOD COUNT 2.82 10^6/uL (4.70-6.10); RED CELL DISTRIBUTION WIDTH 15.6 % (12.0-15.0); WHITE BLOOD COUNT 6.7 x10^3/uL (4.8-10.8)
--- NOTE | 2021-09-10 13:46 | CT Report ---
PROCEDURE: CHEST W INDICATIONS: lymphadenopathy, suspect malignancy CONTRAST: IV CONTRAST: Optiray 320 ml: 100 PO CONTRAST: *NO PO CONTRAST TECHNIQUE: After the administration of intravenous contrast, 1 mm axial images were acquired from the pulmonary apices through the posterior costophrenic angles. Axial 5 mm soft tissue kernel reconstructions were performed as well as 8 mm axial MIP and coronal and sagittal 5 mm reformations. For radiation dose reduction, the following was used: automated exposure control, adjustment of mA and/or kV according to patient size. COMPARISON: Chest x-ray 09/08/[address] abdomen pelvis 09/09/2021 and 08/02/2019 FINDINGS: Image quality: Excellent. Lungs and pleura: Small to moderate dependently layering bilateral pleural effusions with associated compressive atelectasis at the posterior lung bases. There is hazy groundglass opacity in both upper lobes and superior segment left lower lobe. A 7 mm pleural-based nodules present in the lateral righ t middle lobe, 4/184. Small calcifications are present in the superior segment right lower lobe. Mediastinum: There are several enlarged mediastinal lymph nodes. There is matted moreno mass in the s ubcarinal region measuring 3.5 x 5.3 cm. Right infrahilar and perihilar adenopathy is present includi ng the right perihilar nodule mentioned on the abdominal CT report measuring at least 2.3 x 2.3 cm. The heart is mildly enlarged and there is an aortic valve prosthesis. No pericardial effusion. Mild c oronary artery calcification. Aorta and great vessels are normal caliber. Normal esophagus caliber in the proximal and distal portions. The midportion is not seen, possibly compressed or surrounded by t he subcarinal adenopathy mass. Bones and chest wall: No suspicious bony lesions. No vertebral body compression fractures. No axil traci or supraclavicular adenopathy by size criteria. The thyroid is normal in size and there are no incidental findings.. Abdomen: Visualized upper abdomen demonstrates cholelithiasis, granulomatous in the spleen, mild spl enomegaly, low-density left adrenal nodule, and an exophytic right renal cyst. There is a nonobstruct ing left intrarenal calcification. IMPRESSION: 1. Mediastinal and right perihilar adenopathy. 2. 7 mm nonspecific right lower lobe pleural-based nodule. 3. [id number] bilateral pleural effusions and hazy bilateral groundglass opacities. In the set ting of mild cardiomegaly, this is most likely pulmonary edema secondary to CHF. Reviewed by: Catherine Borges MD on 09/10/2021 1:44 PM PST Approved by: Catherine Borges MD on 09/10/2021 1:44 PM PST Station ID: [id number]
== END 2021-09-10 15:24 | disposition home or self-care (01) ==
LOC: EDUNIT# → ED 20:16 → SDS 23:33 → MS2 23:35 → SDS 09-09 00:12 → MS2 09-09 00:13
PROVIDERS: ADMIT Internal Medicine; ATTEND Internal Medicine
PROC: 0DJ08ZZ Inspection of Upper Intestinal Tract, Via Natural or Artificial Opening Endoscopic (ICD-10-PCS; principal; 2021-09-08 23:00)
DX: D64.9 Anemia, unspecified (principal); I13.0 Hypertensive heart and chronic kidney disease with heart failure and stage 1 through stage 4 chronic kidney disease, or unspecified chronic kidney disease; I50.9 Heart failure, unspecified; N18.9 Chronic kidney disease, unspecified; E66.01 Morbid (severe) obesity due to excess calories; Z68.41 Body mass index [BMI] 40.0-44.9, adult; K31.9 Disease of stomach and duodenum, unspecified; I48.20 Chronic atrial fibrillation, unspecified; Z66 Do not resuscitate; Z20.822 Contact with and (suspected) exposure to COVID-19; Z95.2 Presence of prosthetic heart valve; Z87.891 Personal history of nicotine dependence; M19.90 Unspecified osteoarthritis, unspecified site; G62.9 Polyneuropathy, unspecified
CPT/HCPCS: 36415; 43235; 71045; 71260; 74177; 80048; 80053; 82272; 82607; 82746; 82803; 83540; 83690; 83880; 84443; 84466; 84484; 85025; 85027; 86850; 86900; 86901; 86920; 87631; 93005; 93306; 94761; 96374; 96376; 99285; A9270; G0378; J7120; P9016; Q9967; 0202U

== ENCOUNTER 2021-09-22 15:18 | Outpatient (CLI) | payer MEDICARE ==
[2021-09-22 20:05] LABS: BASOPHILS % (AUTO) 0.3 %; EOSINOPHILS % (AUTO) 0.4 %; HCT - HEMATOCRIT 23.3 % (42.0-52.0); LYMPHOCYTES % (AUTO) 10.8 %; MEAN CORPUSCULAR HEMOGLOBIN 27.1 pg (27.0-31.0); MEAN CORPUSCULAR VOLUME 90.3 fL (80.0-94.0); MEAN PLATELET VOLUME 9.3 fL (7.4-11.4); MONOCYTES % (AUTO) 7.3 %; NEUTROPHILS % (AUTO) 80.8 %; PLT - PLATELET COUNT 170 10^3/uL (130-450); RED BLOOD COUNT 2.58 10^6/uL (4.70-6.10); RED CELL DISTRIBUTION WIDTH 16.3 % (12.0-15.0); WHITE BLOOD COUNT 6.7 x10^3/uL (4.8-10.8)
[2021-09-22 20:07] LABS: BILIRUBIN,URINE NEGATIVE (NEGATIVE); GLUCOSE, URINE (UA) NEGATIVE (NEGATIVE); KETONES,URINE (UA) NEGATIVE (NEGATIVE); LEUKOCYTE ESTERASE, URINE NEGATIVE (NEGATIVE); NITRITE,URINE NEGATIVE (NEGATIVE); OCCULT BLOOD,URINE NEGATIVE (NEGATIVE); PROTEIN,URINE NEGATIVE (NEGATIVE); UROBILINOGEN,URINE 0.2 (NORMAL) E.U./dL (NORMAL)
[2021-09-22 20:16] LABS: CLARITY,URINE CLEAR (CLEAR)
[2021-09-22 20:20] LABS: ALBUMIN 2.9 g/dL (3.2-5.5); BILIRUBIN,DIRECT 0.3 mg/dL (0.1-0.5); BILIRUBIN,TOTAL 1.1 mg/dL (0.2-1.0); TOTAL PROTEIN 6.5 g/dL (6.7-8.2)
[2021-09-22 20:27] LABS: ABNORMAL LYMPHS % (MANUAL) 0 %; BAND NEUTROPHILS % (MANUAL) 0 %
[2021-09-22 20:52] LABS: EOSINOPHILS # (MANUAL) 0.1 10^3/uL (0-0.7); LYMPHOCYTES # (MANUAL) 0.5 10^3/uL (1.5-3.5); LYMPHOCYTES % (MANUAL) 8 %; MONOCYTES # (MANUAL) 0.5 10^3/uL (0.0-1.0); NEUTROPHILS # (MANUAL) 5.6 10^3/uL (1.5-6.6)
[2021-09-22 20:53] LABS: DIFFERENTIAL COMMENT MANUAL DIFFERENTIAL; PLATELET ESTIMATE, MANUAL NORMAL (130-450,000) (NORMAL); PLATELET MORPHOLOGY NORMAL APPEARANCE (NORMAL); RBC MORPHOLOGY (MULTIPLE) NORMAL APPEARANCE (NORMAL); WBC MORPHOLOGY (MULTIPLE) NORMAL APPEARANCE (NORMAL)
== END 2021-09-22 15:19 | disposition home or self-care (01) ==
LOC: LAB.S 15:18
PROVIDERS: ATTEND Registered Nurse
DX: D64.9 Anemia, unspecified (principal)
CPT/HCPCS: 36415; 80076; 81001; 81003; 83010; 83615; 85025; 87086

== ENCOUNTER 2021-10-01 14:25 | Observation (INO) | payer MEDICARE ==
[2021-10-01 15:01] LABS: BASOPHILS % (AUTO) 0.2 %; EOSINOPHILS % (AUTO) 0.4 %; HCT - HEMATOCRIT 20.8 % (42.0-52.0); LYMPHOCYTES # (AUTO) 0.6 10^3/uL (1.5-3.5); LYMPHOCYTES % (AUTO) 10.5 %; MEAN CORPUSCULAR HEMOGLOBIN 26.3 pg (27.0-31.0); MEAN CORPUSCULAR HGB CONC 29.8 g/dL (32.0-36.0); MEAN CORPUSCULAR VOLUME 88.1 fL (80.0-94.0); MEAN PLATELET VOLUME 8.8 fL (7.4-11.4); MONOCYTES # (AUTO) 0.5 10^3/uL (0.0-1.0); MONOCYTES % (AUTO) 8.6 %; NEUTROPHILS # (AUTO) 4.6 10^3/uL (1.5-6.6); NEUTROPHILS % (AUTO) 79.8 %; PLT - PLATELET COUNT 132 10^3/uL (130-450); RED BLOOD COUNT 2.36 10^6/uL (4.70-6.10); RED CELL DISTRIBUTION WIDTH 16.6 % (12.0-15.0); WHITE BLOOD COUNT 5.7 x10^3/uL (4.8-10.8)
[2021-10-01 15:07] LABS: HGB - HEMOGLOBIN 6.2 g/dL (14.0-18.0)
--- NOTE | 2021-10-01 15:08 | ED Physician Documentation ---
History of Present Illness - Stated complaint Stated Complaint: FATIGUE/WEAKNESS - Chief complaint Chief Complaint: General - Additonal information Additional information: 75-year-old male is referred to the emergency department from his primary care provider for evaluation and treatment of worsening symptomatic anemia. This gentleman was admitted to our hospital in early August for symptomatic anemia and a CHF exacerbation. He underwent a TAVR in 2018. In early August the patient underwent an elective colonoscopy with Dr. Gregg HOWELL. Several polyps were removed. However during the procedure he went into atrial fib. He was ultimately consulted by the hospitalist for A. fib and started on Eliquis. Since then however he has been having persistent dyspnea on exertion and worsening lower extremity edema. He is currently on Eliquis, his last dose was this morning though he does report that this morning his primary care doctor had advised him to discontinue taking it. Since discharge from the hospital over the last 3 weeks patient feels that his dyspnea on exertion is worsening. He feels that the inability to lay supine for any short-term is also bothersome. He has fairly extensive lower extremity edema though this has not changed. Due to the edema and a CT scan showing mediastinal and perihilar adenopathy as well as a pleural nodule the patient is scheduled to be seen by hematology oncology at our [facility] on 06 October. The patient's primary care provider Hyacinth Mitchell called the emergency department to notify us that his hemoglobin has continued to decline since last hospitalization and was 6.2 on 09/29/2021 Review of Systems Constitutional: reports: Reviewed and negative Ears: reports: Reviewed and negative Nose: reports: Reviewed and negative Throat: reports: Reviewed and negative Cardiac: reports: Pedal edema. denies: Chest pain / pressure, Palpitations Respiratory: reports: Dyspnea. denies: Hemoptysis GI: reports: Diarrhea. denies: Abdominal Pain, Hematemesis, Bloody / black stool : reports: Reviewed and negative Skin: denies: Rash, Lesions Musculoskeletal: reports: Reviewed and negative PD PAST MEDICAL HISTORY - Past Medical History Cardiovascular: Hypertension, High cholesterol, Atrial fibrillation, Murmur, Valve disorder Respiratory: Sleep apnea, CPAP use Neuro: None Endocrine/Autoimmune: None GI: None : Nocturia HEENT: Glaucoma, Chronic hearing loss Psych: None Musculoskeletal: Osteoarthritis Derm: None - Past Surgical History Past Surgical History: Yes General: Colonoscopy Cardiovascular: Valve replacement, Vascular surgery HEENT: Tonsil/Adenoidectomy - Present Medications Home Medications: Ambulatory Orders Medication Instructions Recorded Confirmed Amlodipine Besylate 5 mg PO BID 11/27/12 09/08/21 Atorvastatin Calcium [Lipitor] 20 mg PO DAILY 11/27/12 09/08/21 Folic Acid 1 mg PO DAILY 11/27/12 09/08/21 Carvedilol [Coreg] 37.5 mg PO BID 08/02/21 09/08/21 Ferrous Gluconate 324 mg PO DAILY 08/02/21 09/08/21 hydrALAZINE [Apresoline] 50 mg PO TID 08/02/21 09/08/21 Apixaban [Eliquis] 5 mg PO BID #60 tablet 08/04/21 09/08/21 Multivitamin 1 tab PO DAILY 09/08/21 09/08/21 Furosemide [Lasix] 20 mg PO DAILY 30 Days #30 tablet 09/10/21 - Allergies Allergies/Adverse Reactions: Allergies Allergy/AdvReac Type Severity Reaction Status Date / Time lisinopril Allergy Severe Respiratory Verified 10/01/21 14:37 Thiazides Allergy unknown Verified 10/01/21 14:37 - Social History Does the pt smoke?: No Smoking Status: Former smoker Does the pt drink ETOH?: Yes Does the pt have substance abuse?: No - Immunizations Immunizations are current?: Yes - POLST Patient has POLST: Yes POLST Status: Limited Interventions PD ED PE EXPANDED - General General: Alert, Other (Pale appearing. Obese significant edema and anasarca) - Cardiac Cardiac: Regular Rate, Radial strong equal, Pedal strong equal, Cap refill < 2 sec. No: Murmur Present - Respiratory Respiratory: Other (generally reduced breath sounds globally) - Abdomen Abdomen: Normal Bowel sounds. No: Tender to palpation - Derm Derm: Pale - Extremities Extremities: Other (Bilateral lower extremity anasarca though right greater than left. 2+ DP pulse.) - Neuro Neuro: Alert and Oriented X 3, CNII-XII intact - GCS Eye Opening: Spontaneous Motor: Obeys Commands Verbal: Oriented Total: 15 Results - Vitals Vitals: Vital Signs - 24 hr 10/01/21 10/01/21 10/01/21 14:37 15:39 16:02 Temperature 36.5 C Heart Rate 83 88 88 Respiratory 16 20 20 Rate Blood Pressure 116/57 L 105/59 L 114/80 O2 Saturation 97 100 100 Oxygen O2 Source Room air - EKG (time done) 1526 Rate: Rate (enter#) (88) Rhythm: Atrial fibrillation Intervals: No: Prolonged QT Ischemia: Non specific changes Compare to prior EKG: Unchanged from prior EKG Computer interpretation: Agree with computer - Labs Labs: Laboratory Tests 10/01/21 10/01/21 10/01/21 14:52 14:52 14:52 WBC 5.7 RBC 2.36 L Hgb 6.2 L* Hct 20.8 L MCV 88.1 MCH 26.3 L MCHC 29.8 L RDW 16.6 H Plt Count 132 MPV 8.8 Neut # (Auto) 4.6 Lymph # (Auto) 0.6 L Stone # (Auto) 0.5 Eos # (Auto) 0.0 Baso # (Auto) 0.0 Absolute Nucleated RBC 0.00 Nucleated RBC % 0.0 Sodium 133 L Potassium 4.3 Chloride 102 Carbon Dioxide 24 Anion Gap 7.0 BUN 47 H Creatinine 1.8 H Estimated GFR (MDRD) 37 L Glucose 130 H Calcium 8.1 L Total Bilirubin 0.9 AST 22 ALT 24 Alkaline Phosphatase 58 Troponin I High Sens B-Natriuretic Peptide Total Protein 6.3 L Albumin 2.5 L Globulin 3.8 Albumin/Globulin Ratio 0.7 L Lipase 155 H SARS-CoV-2 (PCR) Blood Type A POSITIVE Antibody Screen NEGATIVE Crossmatch IS Only See Detail 10/01/21 10/01/21 10/01/21 14:52 14:52 15:55 WBC RBC Hgb Hct MCV MCH MCHC RDW Plt Count MPV Neut # (Auto) Lymph # (Auto) Stone # (Auto) Eos # (Auto) Baso # (Auto) Absolute Nucleated RBC Nucleated RBC % Sodium Potassium Chloride Carbon Dioxide Anion Gap BUN Creatinine Estimated GFR (MDRD) Glucose Calcium Total Bilirubin AST ALT Alkaline Phosphatase Troponin I High Sens 21.2 H* B-Natriuretic Peptide 869 H Total Protein Albumin Globulin Albumin/Globulin Ratio Lipase SARS-CoV-2 (PCR) NOT DETECTED Blood Type Antibody Screen Crossmatch IS Only PD MEDICAL DECISION MAKING - ED course Complexity details: reviewed results ED course: 75-year-old male was advised to come to the emergency department for evaluation of worsening dyspnea and orthopnea. Seen and admitted recently for congestive heart failure and anemia. His primary care provider has been monitoring him over the last 3 weeks and found progressive decline in his hemoglobin with worsening symptoms. Hemoglobin today is 6.2. He is noted to have a BNP of nearly 870 which is higher than previous. He is also markedly anasarca though this does seem baseline but perhaps a little worse than usual. I do note that he has mildly increased BUN and creatinine from previous and baseline. He is scheduled to be seen by hematology oncology at the [facility] this upcoming week. He was recently noted to have a gastric mass as well as perihilar lymphadenopathy. He is on Eliquis given his history of atrial fibrillation. This likely needs to be discontinued given the worsening anemia Given the heart failure and the need for transfusion he will be admitted to the hospital on an observation status likely discharge in the morning to continue follow-up with hematology oncology. It should be noted that he had an echocardiogram with his last admission in earlier August. He had an ejection fraction of 65 to 70%. His bioprosthetic aortic valve was in good position. He does have atrial fibrillation but his rate is well controlled on Coreg. This case was discussed with hospitalist Dr. Phelps who agrees to see and evaluate the patient. Patient and his are in agreement to observation admission only. Departure - Departure Disposition: ED Place in Observation Clinical Impression: Symptomatic anemia, WALLACE (acute kidney injury) Congestive heart failure Qualifiers: Heart failure type: right heart failure due to left heart failure Qualified Code(s): I50.814 - Right heart failure due to left heart failure
--- NOTE | 2021-10-01 15:09 | XRAY Report ---
PROCEDURE: Chest 1 View X-Ray INDICATIONS: Chest pain TECHNIQUE: One view of the chest was acquired. COMPARISON: 09/10/2021 CT chest FINDINGS: Small bilateral pleural effusions with overlying bibasilar atelectasis. Increased interstitial markin gs in both lungs. No pneumothorax. Heart size is at the upper limits of normal. Aortic valve prosthes is again noted. IMPRESSION: Small bilateral pleural effusions with overlying atelectasis and findings of interstitial edema. Reviewed by: Madhu Marcial MD on 10/01/2021 3:07 PM PDT Approved by: Mdahu Marcial MD on 10/01/2021 3:07 PM PDT Station ID: [id number]
[2021-10-01 15:17] LABS: ALBUMIN 2.5 g/dL (3.2-5.5); ALBUMIN/GLOBULIN RATIO 0.7 (1.0-2.2); BILIRUBIN,TOTAL 0.9 mg/dL (0.2-1.0); CALCIUM 8.1 mg/dL (8.5-10.3); CREATININE 1.8 mg/dL (0.6-1.2); POTASSIUM 4.3 mmol/L (3.5-5.0); TOTAL PROTEIN 6.3 g/dL (6.7-8.2)
[2021-10-01] MEDS ORDERED: ONDANSETRON 4 MG/2 ML VIAL IVP PRN (15:44)
[2021-10-01] MEDS ORDERED: ONDANSETRON ODT 4 MG TABLET TL PRN (15:44)
[2021-10-01] MEDS ORDERED: SODIUM CHLORIDE FLUSH 0.9% 10 ML SYRINGE IVP PRN (15:44)
[2021-10-01] MEDS ORDERED: oxyCODONE 5 MG TABLET PO PRN (15:44)
[2021-10-01] MEDS ORDERED: PROCHLORPERAZINE 10 MG/2 ML VIAL IVP PRN (15:44)
[2021-10-01] MEDS ORDERED: ACETAMINOPHEN 325 MG TABLET PO PRN (15:44)
--- NOTE | 2021-10-01 16:13 | HISTORY & PHYSICAL EXAMINATION ---
Chief Complaint - Chief Complaint Chief Complaint: Shortness of breath with exertion History of Present Illness - Admitted From Admitted From:: Home via his PCP office - History Obtained From Records Reviewed: [facility] History obtained from: LORENZO Bucio and patient Exam Limitations: None - History of Present Illness HPI Comment/Other: This gentleman has chronic diastolic heart failure. He underwent a successful TAVR in 2017 and also underwent coronary stent in December 2019. He has chronic dyspnea on exertion but it has worsened since his colonoscopy. He could walk as much as he wanted too albeit slowly, but every since his colonoscopy he has no energy and is easily winded just getting up to walk a few steps. If he is sitting, he is fine. No orthopnea. He has chronic edema and that has worsened over the last few weeks. He had sudden change in status when he underwent an elective colonoscopy with general surgery August 04, 2021. After the procedure, while in PACU, he was noted to be in atrial fibrillation. I was consulted, and started him on Eliquis. I also discussed the case with his cardiology group from the [facility]. 4 days later, he was seen by his primary care provider and taken off Eliquis. I am not clear about the rationale. Since this episode, he continues to have persistent dyspnea on exertion. The pathology came back from his colonoscopy showing tubular adenomas. He presented to the emergency room on September 09 with worsening dyspnea on exertion. He was also newly lightheaded. In the emergency room his hemoglobin was 7.8. He is hemoglobin with his previous colonoscopy in August 22022 was 12. He was evaluated for possible GI bleeding on Eliquis and had an EGD done. The EGD showed a gastric mass that was submucosal. The feeling was that it may be pressing externally onto the stomach causing a rise in gastric mucosa from external compression. He has had several echocardiograms due to his TAVR. I am able to review the results from August 2017 as well as September 09, 2021. He has atrial fibrillation. The left ventricle size is normal. Wall thickness was normal. Ejection fraction normal to slightly hyperdynamic at 65 to 70%. Right ventricle normal in size and function. The bioprosthetic valve was a normal position with borderline elevated velocities. Moderate tricuspid regurgitation with moderately abnormal right heart pressures and RVSP of 62 mmHg With the September 09 admission he was transfused 1 unit of blood. Discharged the next day and kept on iron. It was interesting to note that a CT of the chest abdomen and pelvis was done and no gastric mass was seen on CT of the abdomen. However he had mediastinal and right perihilar adenopathy. He had a 7 mm nonspecific right lower lobe pleural-based nodule. He had small to moderate carlo ateral pleural effusions and hazy bilateral groundglass opacities. In the setting of mild cardiomegaly it was most likely pulmonary edema secondary to congestive heart failure. Laboratory studies done during that time showed an iron of 12, TIBC 206, percent saturation 6, transferrin 147. With the 1 unit of blood transfusion his hemoglobin was 8.2. He was treated with Lasix 20 mg IV push throughout his stay. The dyspnea on exertion continues. He was seen by his primary care provider. During her evaluation, she found him to have continued anemia, and mild congestive heart failure. She sent him to the emergency room today. He was evaluated by the ER provider. Temperature was 36.5. Heart rate 83. Blood pressure 116/57. Respirations 16 and is 97% on room air. BUN is 47, creatinine 1.8. At discharge on September 10 he was 31/ 1.3. Troponin is 21. BNP 869. Hemoglobin is 6.2. When he was discharged on September 10 his hemoglobin was 8.2. In follow-up by his PCP he is hemoglobin was 7 on September 22. And today at 6.2. He does not give any history of melena, hematemesis and he continues his oral iron. The emergency room provider would like him placed in observation for him to rec eive a unit of blood with anticipation that he will be discharged tomorrow morning. He has an appointment with oncology regarding the adenopathy next week. History - Past Medical History Cardiovascular: reports: Hypertension, High cholesterol, Coronary artery disease, Atrial fibrillation, Murmur, Valve disorder Respiratory: reports: Sleep apnea, CPAP use Neuro: reports: None Endocrine/Autoimmune: reports: None GI: reports: Colon polyps : reports: Nocturia HEENT: reports: Glaucoma, Chronic hearing loss Psych: reports: None Musculoskeletal: reports: Osteoarthritis Derm: reports: None MRSA Hx?: No - Past Surgical History General: reports: Colonoscopy Cardiovascular: reports: Valve replacement, Vascular surgery HEENT: reports: Tonsil/Adenoidectomy - Family & Social History Family History Comment/Other: Mom and dad with any significant arrhythmia history or thyroid disease or history of pulmonary embolism. Siblings also without any significant history as above. Children healthy Living arrangement: At home Living Situation: With spouse/s.o. Social History Notes: He smoked for about 10 years. Probably close to 1 pack/day. Quit 30 years ago. Drinks 1 ounce of alcohol a day. Never had a problem with alcohol abuse. 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 his live in their own home and they are independent. - Substance History Use: Uses substance without health or social issues: Alcohol Abuse: Recurrent use of substance despite neg consequences: NONE Dependence: Experiences withdrawal or developed tolerances: NONE - POLST Patient has POLST: Yes POLST Status: Limited Interventions Meds/Allgy - Home Medications Home Medications: Ambulatory Orders Medication Instructions Recorded Confirmed Amlodipine Besylate 5 mg PO BID 11/27/12 09/08/21 Atorvastatin Calcium [Lipitor] 20 mg PO DAILY 11/27/12 09/08/21 Folic Acid 1 mg PO DAILY 11/27/12 09/08/21 Carvedilol [Coreg] 37.5 mg PO BID 08/02/21 09/08/21 Ferrous Gluconate 324 mg PO DAILY 08/02/21 09/08/21 hydrALAZINE [Apresoline] 50 mg PO TID 08/02/21 09/08/21 Apixaban [Eliquis] 5 mg PO BID #60 tablet 08/04/21 09/08/21 Multivitamin 1 tab PO DAILY 09/08/21 09/08/21 Furosemide [Lasix] 20 mg PO DAILY 30 Days #30 tablet 09/10/21 - Allergies Allergies/Adverse Reactions: Allergies Allergy/AdvReac Type Severity Reaction Status Date / Time lisinopril Allergy Severe Respiratory Verified 10/01/21 14:37 Thiazides Allergy unknown Verified 10/01/21 14:37 Review of Systems - Constitutional Constitutional: reports: Fatigue - Eyes Eyes: denies: Pain, Irritation, Amaurosis - Cardiovascular Cariovascular: reports: Irregular heart rate, Edema, Exertional dyspnea, Decr. exercise tolerance - Respiratory Respiratory: reports: Cough, SOB at rest, SOB with exertion. denies: Sputum production, Wheezing - Gastrointestinal Gastrointestinal: reports: Poor appetite. denies: Abdominal pain, Abdominal distention, Constipation, Diarrhea, Change in bowel habits, Black stools, Bloody stools, Nausea, Vomiting - Genitourinary Genitourinary: reports: Urgency, Nocturia. denies: Dysuria, Frequency - Musculoskeletal Musculoskeletal: reports: Joint pain. denies: Muscle pain, Back pain, Muscle aches - Integumentary Integumentary: denies: Rash, Pruritis, Lesions - Neurological Neurological: reports: General weakness, Focal weakness, Headache - Psychiatric Psychiatric: denies: Depression, Anxiety, Suicidal - Endocrine Endocrine: denies: Polyuria, Polydypsia, Polyphagia - Hematologic/Lymphatic Hematologic/Lymphatic: reports: Anemia. denies: Bruising, Blood clots Prior Level of Functionality: Does not use any durable medical equipment and is independent with activities of daily living. Drives a car. Able to dress himself and feed himself. Exam - Vital Signs Reviewed Vital Signs: Yes Vital Signs: Vital Signs x48h Temp Pulse Resp BP Pulse Ox 10/01/21 16:02 88 20 114/80 100 10/01/21 15:39 88 20 105/59 L 100 10/01/21 14:37 36.5 C 83 16 116/57 L 97 - Physical Exam General Appearance: positive: No acute distress, Alert, Other (pale, sitting up in chair in his room, getting ready to eat dinner) Eyes Bilateral: positive: PERRL, EOMI ENT: positive: Pharynx nml Neck: positive: No JVD. negative: Stiff neck Respiratory: positive: No respiratory distress. negative: Wheezes, Rales, Rhonchi Cardiovascular: positive: Irregularly irregular, Systolic murmur. negative: Gallop/S4, Friction rub Peripheral Pulses: positive: 1+ Abdomen: positive: Non-tender, No organomegaly, Nml bowel sounds, No distention Skin: positive: Warm, Dry, Pallor Extremities: positive: Full ROM, Pedal edema Neurologic/Psychiatric: positive: Oriented x3, CN's nml (2-12), Motor nml Conclusion/Plan - Problem List (1) Symptomatic anemia Conclusion/Plan: That is iron deficiency anemia in a patient on anticoagulation therapy for atrial fibrillation. Unclear cause of the iron deficiency anemia. His EGD showed a possible gastric mass but CT imaging of the abdomen does not show a mass there. Colonoscopy showed polyps but no tumors. He is not describing any GI bleed. Plan: Place in observation Transfuse 1 unit Check reticulocyte count and LDH give his lasix to help w chf. No change in coreg since his rate is controlled. (2) CHF (congestive heart failure) Conclusion/Plan: He is followed by Dr. Cheney at [facility]. Has an intact valve in place. Is not having an OR. Does have atrial fibrillation but is rate controlled. But I would think that lack of dilated atrial size and lack of atrial kick would not cause such dyspnea on exertion or shortness of breath. I called Dr. Cheney to discuss his case before office hours closed for them but she is not in today. I was able to speak to Dr. Jordan and we went over his recent echo. He recommends making sure he gets his lasix in the face of the transfusion and to stop eliquis. Dr. Cheney will need to see him in clinic. In the meantime I will continue his Coreg. Qualifiers: Heart failure type: right heart failure due to left heart failure Qualified Code(s): I50.814 - Right heart failure due to left heart failure (3) Adenopathy, hilar Conclusion/Plan: Associated with worsening anemia. In reviewing the electronic medical record he was anemic to 13 in 2018. By 2020 he was 11. By 2021 he was in the sevens. Now down to 6.2. Platelets have been intermittently low starting in 2019. But currently 132. White cell count has remained normal. Plan: He is to follow-up with oncology opinion October 06. I will ask for pathology smear review of his blood. (4) CKD (chronic kidney disease) Conclusion/Plan: Baseline creatinine is anywhere between 1.0-1.2. With his colonoscopy he was 1.3. With his previous transfusion of 1 unit of blood he was 1.4. He has been placed on Lasix twice daily since that and his creatinine is now 1.8. He will be receiving 1 unit of blood, and some Lasix on top of that. We will monitor BUN and creatinine tomorrow morning Qualifiers: Chronic kidney disease stage: stage 3 (moderate) - Lab Results Lab results reviewed: Yes Fish Bones: 10/01/21 14:52 10/01/21 14:52 Core Measures - Anticipated LOS I expect patient to be DC'd or transferred within 96 hours.: Yes - DVT/VTE - Prophylaxis VTE/DVT Device ordered at admit?: Yes
[2021-10-01] MEDS: SODIUM CHLORIDE FLUSH 0.9% 10 ML SYRINGE IVP SCH (17:27)
[2021-10-01 20:24] LABS: PLATELET ESTIMATE, MANUAL NORMAL (130-450,000) (NORMAL); PLATELET MORPHOLOGY NORMAL APPEARANCE (NORMAL); SLIDE REVIEW? Indicated; WBC MORPHOLOGY (MULTIPLE) NORMAL APPEARANCE (NORMAL)
[2021-10-02] MEDS: SODIUM CHLORIDE FLUSH 0.9% 10 ML SYRINGE IVP SCH ×3 (00:38→16:02)
[2021-10-02 07:38] LABS: BASOPHILS % (AUTO) 0.3 %; EOSINOPHILS % (AUTO) 0.4 %; HCT - HEMATOCRIT 23.3 % (42.0-52.0); HGB - HEMOGLOBIN 7.1 g/dL (14.0-18.0); LYMPHOCYTES # (AUTO) 0.7 10^3/uL (1.5-3.5); MEAN CORPUSCULAR HEMOGLOBIN 26.3 pg (27.0-31.0); MEAN CORPUSCULAR HGB CONC 30.5 g/dL (32.0-36.0); MEAN CORPUSCULAR VOLUME 86.3 fL (80.0-94.0); MEAN PLATELET VOLUME 8.8 fL (7.4-11.4); MONOCYTES # (AUTO) 0.5 10^3/uL (0.0-1.0); NEUTROPHILS # (AUTO) 5.4 10^3/uL (1.5-6.6); NEUTROPHILS % (AUTO) 80.9 %; PLT - PLATELET COUNT 133 10^3/uL (130-450); RED CELL DISTRIBUTION WIDTH 16.3 % (12.0-15.0); WHITE BLOOD COUNT 6.7 x10^3/uL (4.8-10.8)
[2021-10-02 07:48] LABS: CREATININE 1.6 mg/dL (0.6-1.2)
[2021-10-02 08:55] LABS: ABSOLUTE RETICS # AUTO 0.113 10^6/uL (0.020-0.110); RED BLOOD COUNT 2.71 10^6/uL (4.70-6.10); RETICULOCYTE COUNT % (AUTO) 4.18 % (0.5-2.3)
--- NOTE | 2021-10-02 10:45 | PHARMACY PROGRESS NOTE ---
- Best Possible Medication History Admit Date and Time: 10/01/21 1610 Processed by: Pharmacy Medication History completed: Yes Secondary Source(s): Physician records, Pharmacy records, Insurance records, Previous admit records As the person ultimately responsible for medication therapy, providers are able to order a medication from an existing home medication list in [facility] via the "Reconcile Routine" prior to Confirmation of that medication by technical support manager. Such practice is discouraged except when the physician, in their clinical judgment, deems that a medical need exists for a medication without regard to previous use.
--- NOTE | 2021-10-02 12:51 | Discharge Plan ---
Discharge Plan Problem Reviewed?: Yes Disposition: Home, Self Care Condition: Fair Diet: Low Sodium Activity Restrictions: Activity as Tolerated Shower Restrictions: No Driving Restrictions: No Health Concerns: You presented to our emergency room with recurrent shortness of breath when you try to do anything. All of this started after your colonoscopy August 04 when you were diagnosed with new onset atrial fibrillation. Since that time you have had shortness of breath that comes and goes. You were already hospitalized September 09 with severe anemia causing severe shortness of breath. Was transfused 1 unit of blood. And now you return with the same problem. You were getting waited to see the cancer specialist next week to find out why your lymph glands in your chest are so big, look at the pleura nausea, and figure out why you are so anemic since we do not think you are having a GI bleed. We transfuse you 1 unit of blood and you were able to come up from 6.4 g of hemoglobin to 7.1 g of hemoglobin. The panting that you had when you came in into the hospital has gone away but you are still shortness of breath with simple activities in the room. As such we transfuse you a second unit of blood. Plan of Treatment: Main goal is for you to see you the oncologist on October 06. Hopefully the oncologist can start the work-up to figure out 2 things: 1. Why you have the enlarged lymph glands in your chest wall with the pleural nodule 2. Why do you have significant anemia at the keeps on needing transfusion Please continue to take iron at home until the oncologist says you can stop. Please see your automatic cigar wrapper tender in follow-up. I am concerned that there may be a cardiac issue are missing. I did talk to the automatic cigar wrapper tender on-call who works with Dr. Cheney and they feel that other than Lasix being continued, no new therapy. Care Goals: To regain stable breathing status so that you can do your activities of daily living and normal activities without being short of breath. To also find out why you are so anemic and not need any more transfusions. Assessment: Patient understands the problem, current treatment plan, and promises to follow through No Smoking: If you smoke, Please STOP! Call for help. Follow-up with: Maya Mitchell ARNP [Primary Care Provider] - Antelmo Cheney MD [Physician No Access] -
[2021-10-02] MEDS ORDERED: FUROSEMIDE 20 MG/2 ML VIAL IVP STA (12:54)
--- NOTE | 2021-10-02 12:57 | DISCHARGE SUMMARY ---
"Discharge Summary Admit Date: 10/01/21 Discharge Date: 10/02/21 Discharging Provider: Anna Phelps MD Primary Care Provider: LORENZO Hidalgo Code Status: Attempt Resuscitation Condition at Discharge: Fair Discharge Disposition: 01 Home, Self Care - DIAGNOSES Discharge Diagnoses with Status of Each Condition: 1. Severe iron deficiency anemia 2. Dyspnea on exertion 3. Long-term use of anticoagulant 4. Chronic atrial fibrillation 5. Right heart failure due to left heart failure 6. Hilar adenopathy 7. Chronic kidney disease - HPI History of Present Illness: This gentleman has chronic diastolic heart failure. He underwent a successful TAVR in 2017 and also underwent coronary stent in December 2019. He has chronic dyspnea on exertion but it has worsened since his colonoscopy. He could walk as much as he wanted too albeit slowly, but every since his colonoscopy he has no energy and is easily winded just getting up to walk a few steps. If he is sitting, he is fine. No orthopnea. He has chronic edema and that has worsened over the last few weeks. He had sudden change in status when he underwent an elective colonoscopy with general surgery August 04, 2021. After the procedure, while in PACU, he was noted to be in atrial fibrillation. I was consulted, and started him on Eliquis. I also discussed the case with his cardiology group from the [facility]. 4 days later, he was seen by his primary care provider and taken off Eliquis. I am not clear about the rationale. Since this episode, he continues to have persistent dyspnea on exertion. The pathology came back from his colonoscopy showing tubular adenomas. He presented to the emergency room on September 09 with worsening dyspnea on exertion. He was also newly lightheaded. In the emergency room his hemoglobin was 7.8. He is hemoglobin with his previous colonoscopy in August 22022 was 12. He was evaluated for possible GI bleeding on Eliquis and had an EGD done. The EGD showed a gastric mass that was submucosal. The feeling was that it may be pressing externally onto the stomach causing a rise in gastric mucosa from external compression. He has had several echocardiograms due to his TAVR. I am able to review the results from August 2017 as well as September 09, 2021. He has atrial fibrillation. The left ventricle size is normal. Wall thickness was normal. Ejection fraction normal to slightly hyperdynamic at 65 to 70%. Right ventricle normal in size and function. The bioprosthetic valve was a normal position with borderline elevated velocities. Moderate tricuspid regurgitation with moderately abnormal right heart pressures and RVSP of 62 mmHg With the September 09 admission he was transfused 1 unit of blood. Discharged the next day and kept on iron. It was interesting to note that a CT of the chest abdomen and pelvis was done and no gastric mass was seen on CT of the abdomen. However he had mediastinal and right perihilar adenopathy. He had a 7 mm nonspecific right lower lobe pleural-based nodule. He had small to moderate bilateral pleural effusions and hazy bilateral groundglass opacities. In the setting of mild cardiomegaly it was most likely pulmonary edema secondary to congestive heart failure. Laboratory studies done during that time showed an iron of 12, TIBC 206, percent saturation 6, transferrin 147. With the 1 unit of blood transfusion his hemoglobin was 8.2. He was treated with Lasix 20 mg IV push throughout his stay. The dyspnea on exertion continues. He was seen by his primary care provider. During her evaluation, she found him to have continued anemia, and mild congestive heart failure. She sent him to the emergency room today. He was evaluated by the ER provider. Temperature was 36.5. Heart rate 83. Blood pressure 116/57. Respirations 16 and is 97% on room air. BUN is 47, creatinine 1.8. At discharge on September 10 he was 31/ 1.3. Troponin is 21. BNP 869. Hemoglobin is 6.2. When he was discharged on September 10 his hemoglobin was 8.2. In follow-up by his PCP he is hemoglobin was 7 on September 22. And today at 6.2. He does not give any history of melena, hematemesis and he continues his oral iron. The emergency room provider would like him placed in observation for him to receive a unit of blood with anticipation that he will be discharged tomorrow morning. He has an appointment with oncology regarding the adenopathy next week. Past Medical History Cardiovascular: reports: Hypertension, High cholesterol, Coronary artery disease, Atrial fibrillation, Murmur, Valve disorder Respiratory: reports: Sleep apnea, CPAP use Neuro: reports: None Endocrine/Autoimmune: reports: None GI: reports: Colon polyps : reports: Nocturia HEENT: reports: Glaucoma, Chronic hearing loss Psych: reports: None Musculoskeletal: reports: Osteoarthritis Derm: reports: None MRSA Hx?: No - Past Surgical History General: reports: Colonoscopy Cardiovascular: reports: Valve replacement, Vascular surgery HEENT: reports: Tonsil/Adenoidectomy - CONSULTS | PROCEDURES Procedures: Chest x-ray has small bilateral pleural effusions with overlying atelectasis and interstitial edema - HOSPITAL COURSE Hospital Course: Patient was placed in observation to get a unit of blood. After 1 unit of blood hemoglobin went from 6.2 to 7.1. He has been steadily dropping his hemoglobin over this last month and his hemoglobin was 7.0 a week before admission. As such I transfused him a second unit of blood even though our cut off is 7 g. He does not have any signs of a GI bleed. However he does have significant iron deficiency anemia that is already been established. Prior to admission, EGD showed no ulcer, no area of bleeding. A gastric mass was seen that was submucosal but CT of abdomen and pelvis does not confirm a mass. Prior to admission colonoscopy had tubular adenomas. I spoke to cardiology on-call from the [facility], Dr. Jordan. They reviewed his echo, his records, and they feel that it is not from any type of valve disorder. His TAVR appears to have taken well. His ejection fraction is normal. The most they would recommend discontinuing his current therapy of diuretics. I did explain to them that I think that his shortness of breath is out of proportion to the anemia he has. During his stay his blood pressure was normal. There was one blood pressure he was 96 systolic. I asked him to please discontinue his amlodipine. Continue the Lasix and continue his carvedilol. If his blood pressure continues to be normal, discontinue the Apresoline. He is scheduled for follow-up October 06 to see oncology for an opinion regarding hilar adenopathy and a pleural nodule. I told the patient to make sure that he mentions the anemia problem and that maybe they would have an opinion about what to do with the anemia. At the time of discharge, a peripheral smear review from pathology is pending. That should be reviewed by oncology as well. I have also asked him to be considered for a video endoscopy to complete his work-up. As for his leg edema, he states that his NELLY hose have always been able to control his edema at home. His only been in the last 3 to 4 weeks that his edema has gotten out of control. In addition to the Lasix that is now twice daily through his primary care provider, I have asked him to buy compression devices and use the compression devices at home. At discharge temperature 36.8. Heart rate 78. Blood pressure 118/74. Respirations 16. The panting and tachypnea that he had on admission has resolved. He is sitting comfortably in his chair in his room. Eating 75 to 100% of his food. Skin color is not as pale. Neck with shotty adenopathy but no JVD. Lungs clear to auscultation and percussion with diminished breath sounds at the bases. And a regular rate and rhythm with a systolic murmur. Abdomen is obese, soft, nontender. No fluid wave. Extremities without edema. - ALLERGIES Allergies/Adverse Reactions: Allergies Allergy/AdvReac Type Severity Reaction Status Date / Time lisinopril Allergy Severe Respiratory Verified 10/01/21 14:37 Thiazides Allergy unknown Verified 10/01/21 14:37 - MEDICATIONS Home Medications: Ambulatory Orders Medication Instructions Recorded Confirmed Atorvastatin Calcium [Lipitor] 20 mg PO DAILY 11/27/12 10/02/21 Folic Acid 1 mg PO DAILY 11/27/12 10/02/21 Carvedilol [Coreg] 37.5 mg PO BID 08/02/21 10/02/21 Ferrous Gluconate 324 mg PO DAILY 08/02/21 10/02/21 hydrALAZINE [Apresoline] 50 mg PO TID 08/02/21 10/02/21 Multivitamin 1 tab PO DAILY 09/08/21 10/02/21 Furosemide [Lasix] 20 mg PO DAILY 30 Days #30 tablet 09/10/21 10/02/21 - LABS Result Diagrams: 10/02/21 07:33 10/02/21 07:33"
[2021-10-02 16:10] VITALS: BP 118/74
[2021-10-05 10:51] LABS: PATHOLOGIST SLIDE COMMENTS SEE SEPARATE REPORT
== END 2021-10-02 17:25 | disposition home or self-care (01) ==
LOC: ED 14:25 → MS2 16:10
PROVIDERS: ADMIT Specialist; ATTEND Specialist
DX: D50.9 Iron deficiency anemia, unspecified (principal); R06.00 Dyspnea, unspecified; I48.20 Chronic atrial fibrillation, unspecified; R59.0 Localized enlarged lymph nodes; N18.9 Chronic kidney disease, unspecified; I50.32 Chronic diastolic (congestive) heart failure; I13.0 Hypertensive heart and chronic kidney disease with heart failure and stage 1 through stage 4 chronic kidney disease, or unspecified chronic kidney disease; E78.00 Pure hypercholesterolemia, unspecified; I25.10 Atherosclerotic heart disease of native coronary artery without angina pectoris; G47.30 Sleep apnea, unspecified; H91.90 Unspecified hearing loss, unspecified ear; Z20.822 Contact with and (suspected) exposure to COVID-19; Z79.01 Long term (current) use of anticoagulants; Z79.899 Other long term (current) drug therapy; Z87.891 Personal history of nicotine dependence; Z88.8 Allergy status to other drugs, medicaments and biological substances; Z95.3 Presence of xenogenic heart valve; Z95.5 Presence of coronary angioplasty implant and graft
CPT/HCPCS: 36415; 36430; 71045; 80048; 80053; 83615; 83690; 83880; 84484; 85025; 85045; 86850; 86900; 86901; 86920; 87635; 93005; 96374; 99284; 99285; A9270; G0378; P9016

== ENCOUNTER 2021-10-09 22:36 | Outpatient (CLI) | payer MEDICARE | END 2021-10-09 22:37 | disposition critical access hospital (66) | LOC: EMS 22:36 | DX: R06.09 Other forms of dyspnea (principal) | CPT/HCPCS: A0425; A0429 ==

== ENCOUNTER 2021-10-09 23:07 | Emergency (ER) | payer MEDICARE ==
--- NOTE | 2021-10-09 23:21 | ED Physician Documentation ---
PD HPI DYSPNEA - Stated complaint Stated Complaint: SOA - Chief complaint Chief Complaint: Resp - History obtained from History obtained from: Patient, EMS - History of Present Illness Timing - onset during: Rest Timing - details: Waxing and waning Pain level max: 0 Pain level now: 0 Improved by: Rest Worsened by: Exertion Associated symptoms: Bilateral edema. No: Cough, Hemoptysis, Wheezing, Chest pain / discomfort, Palpitations Recently seen: Admitted - Additional information Additional information: BIBA. c/o dyspnea , subacute but worse over past 1-2 days. Patient says he has been dyspneic since the day of his colonoscopy 08/04/21, which is the same day he was diagnosed as new onset atrial fibrillation. He has also been anemic since the colonoscopy, requiring transfusions (PRBC) , most recently 4 days ago ([place] [facility] [place] He was admitted to [facility] 09/09/21 and again 10/01/21 for dyspnea and anemia He denies CP, cough, fever (although found to be febrile in ED tonight when triaged). H/o TAVR and coronary artery stent Review of Systems Constitutional: denies: Chills, Sweats Cardiac: reports: Pedal edema (chronic). denies: Chest pain / pressure, Palpitations Respiratory: reports: Dyspnea. denies: Cough, Hemoptysis, Wheezing GI: reports: Reviewed and negative Musculoskeletal: reports: Extremity swelling PD PAST MEDICAL HISTORY - Past Medical History Cardiovascular: Hypertension, High cholesterol, Coronary artery disease, Atrial fibrillation, Murmur, Valve disorder Respiratory: Sleep apnea, CPAP use Neuro: None Endocrine/Autoimmune: None GI: Colon polyps : Nocturia HEENT: Glaucoma, Chronic hearing loss Psych: None Musculoskeletal: Osteoarthritis Derm: None - Past Surgical History Past Surgical History: Yes General: Colonoscopy Cardiovascular: Valve replacement, Vascular surgery HEENT: Tonsil/Adenoidectomy - Present Medications Home Medications: Ambulatory Orders Medication Instructions Recorded Confirmed Atorvastatin Calcium [Lipitor] 20 mg PO DAILY 11/27/12 10/10/21 Folic Acid 1 mg PO DAILY 11/27/12 10/10/21 Carvedilol [Coreg] 37.5 mg PO BID 08/02/21 10/10/21 Ferrous Gluconate 324 mg PO DAILY 08/02/21 10/10/21 hydrALAZINE [Apresoline] 50 mg PO TID 08/02/21 10/10/21 Multivitamin 1 tab PO DAILY 09/08/21 10/10/21 Furosemide [Lasix] 20 mg PO DAILY 30 Days #30 tablet 09/10/21 10/10/21 Azithromycin [Zithromax] 250 mg PO DAILY #4 tablet 10/10/21 - Allergies Allergies/Adverse Reactions: Allergies Allergy/AdvReac Type Severity Reaction Status Date / Time lisinopril Allergy Severe Respiratory Verified 10/09/21 23:15 Thiazides Allergy unknown Verified 10/09/21 23:15 - Social History Does the pt smoke?: No Smoking Status: Former smoker Does the pt drink ETOH?: Yes Does the pt have substance abuse?: No - Immunizations Immunizations are current?: Yes - POLST Patient has POLST: Yes POLST Status: Limited Interventions PD ED PE NORMAL - Vitals Vital signs reviewed: Yes - General General: Alert and oriented X 3, No acute distress, Well developed/nourished - HEENT HEENT: Moist mucous membranes - Neck Neck: Supple, no meningeal sign - Respiratory Respiratory: No respiratory distress - Abdomen Abdomen: Soft, Non tender - Derm Derm: Normal color, Warm and dry - Neuro Neuro: Alert and oriented X 3 PD ED PE EXPANDED - Cardiac Cardiac: Tachy, Irregularly irregular - Respiratory Respiratory: Other (bibasilar rales) - Extremities Extremities: Pedal edema bilateral Results - Vitals Vitals: Oxygen O2 Source Room air - EKG (time done) No standard instances Rate: Rate (enter#) (105) Rhythm: Atrial fibrillation [place]: Normal QRS: Normal Ischemia: T wave inversion (lateral leads, no significant change compared to previous ) Other comments: Other comments (PVC) - Labs Labs: Laboratory Tests 10/09/21 10/09/21 10/09/21 23:25 23:30 23:30 WBC 8.5 RBC 3.26 L Hgb 8.7 L Hct 28.1 L MCV 86.2 MCH 26.7 L MCHC 31.0 L RDW 17.2 H Plt Count 112 L MPV 8.5 Neut # (Auto) 7.6 H Lymph # (Auto) 0.4 L [place] # (Auto) 0.4 Eos # (Auto) 0.0 Baso # (Auto) 0.0 Absolute Nucleated RBC 0.00 Nucleated RBC % 0.0 Sodium 135 Potassium 4.4 Chloride 102 Carbon Dioxide 24 Anion Gap 9.0 BUN 37 H Creatinine 1.6 H Estimated GFR (MDRD) 43 L Glucose 101 H Lactic Acid Calcium 8.2 L Total Bilirubin 1.2 H AST 22 ALT 20 Alkaline Phosphatase 63 Troponin I High Sens B-Natriuretic Peptide Total Protein 6.9 Albumin 2.8 L Globulin 4.1 Albumin/Globulin Ratio 0.7 L Lipase 139 H Urine Color Urine Clarity Urine pH Ur Specific [place] Urine Protein Urine Glucose (UA) Urine Ketones Urine Occult Blood Urine Nitrite Urine Bilirubin Urine Urobilinogen Ur Leukocyte Esterase Ur Microscopic Review Urine Culture Comments Nasal Adenovirus (PCR) NOT DETECTED Nasal B. parapertussis DNA (PCR) NOT DETECTED Nasal Coronavir 229E PCR NOT DETECTED Nasal Coronavir HKU1 PCR NOT DETECTED Nasal Coronavir NL63 PCR NOT DETECTED Nasal Coronavir OC43 PCR NOT DETECTED Nasal Enterovir/Rhinovir PCR NOT DETECTED Nasal Influenza B PCR NOT DETECTED Nasal Influenza A PCR NOT DETECTED Nasal Parainfluen 1 PCR NOT DETECTED Nasal Parainfluen 2 PCR NOT DETECTED Nasal Parainfluen 3 PCR NOT DETECTED Nasal Parainfluen 4 PCR NOT DETECTED Nasal RSV (PCR) NOT DETECTED Nasal B.pertussis DNA PCR NOT DETECTED Nasal C.pneumoniae (PCR) NOT DETECTED [place] Metapneumo PCR NOT DETECTED Nasal M.pneumoniae (PCR) NOT DETECTED Nasal SARS-CoV-2 (PCR) NOT DETECTED 10/09/21 10/09/21 10/09/21 23:30 23:30 23:30 WBC RBC Hgb Hct MCV MCH MCHC RDW Plt Count MPV Neut # (Auto) Lymph # (Auto) [place] # (Auto) Eos # (Auto) Baso # (Auto) Absolute Nucleated RBC Nucleated RBC % Sodium Potassium Chloride Carbon Dioxide Anion Gap BUN Creatinine Estimated GFR (MDRD) Glucose Lactic Acid 0.9 Calcium Total Bilirubin AST ALT Alkaline Phosphatase Troponin I High Sens 23.8 H* B-Natriuretic Peptide 904 H Total Protein Albumin Globulin Albumin/Globulin Ratio Lipase Urine Color Urine Clarity Urine pH Ur Specific [place] Urine Protein Urine Glucose (UA) Urine Ketones Urine Occult Blood Urine Nitrite Urine Bilirubin Urine Urobilinogen Ur Leukocyte Esterase Ur Microscopic Review Urine Culture Comments Nasal Adenovirus (PCR) Nasal B. parapertussis DNA (PCR) Nasal Coronavir 229E PCR Nasal Coronavir HKU1 PCR Nasal Coronavir NL63 PCR Nasal Coronavir OC43 PCR Nasal Enterovir/Rhinovir PCR Nasal Influenza B PCR Nasal Influenza A PCR Nasal Parainfluen 1 PCR Nasal Parainfluen 2 PCR Nasal Parainfluen 3 PCR Nasal Parainfluen 4 PCR Nasal RSV (PCR) Nasal B.pertussis DNA PCR Nasal C.pneumoniae (PCR) [place] Metapneumo PCR Nasal M.pneumoniae (PCR) Nasal SARS-CoV-2 (PCR) 10/10/21 00:50 WBC RBC Hgb Hct MCV MCH MCHC RDW Plt Count MPV Neut # (Auto) Lymph # (Auto) [place] # (Auto) Eos # (Auto) Baso # (Auto) Absolute Nucleated RBC Nucleated RBC % Sodium Potassium Chloride Carbon Dioxide Anion Gap BUN Creatinine Estimated GFR (MDRD) Glucose Lactic Acid Calcium Total Bilirubin AST ALT Alkaline Phosphatase Troponin I High Sens B-Natriuretic Peptide Total Protein Albumin Globulin Albumin/Globulin Ratio Lipase Urine Color YELLOW Urine Clarity CLEAR Urine pH 5.5 Ur Specific [place] 1.020 Urine Protein NEGATIVE Urine Glucose (UA) NEGATIVE Urine Ketones NEGATIVE Urine Occult Blood TRACE-LYSE Urine Nitrite NEGATIVE Urine Bilirubin NEGATIVE Urine Urobilinogen 0.2 (NORMAL) Ur Leukocyte Esterase NEGATIVE Ur Microscopic Review NOT INDICATED Urine Culture Comments NOT INDICATED Nasal Adenovirus (PCR) Nasal B. parapertussis DNA (PCR) Nasal Coronavir 229E PCR Nasal Coronavir HKU1 PCR Nasal Coronavir NL63 PCR Nasal Coronavir OC43 PCR Nasal Enterovir/Rhinovir PCR Nasal Influenza B PCR Nasal Influenza A PCR Nasal Parainfluen 1 PCR Nasal Parainfluen 2 PCR Nasal Parainfluen 3 PCR Nasal Parainfluen 4 PCR Nasal RSV (PCR) Nasal B.pertussis DNA PCR Nasal C.pneumoniae (PCR) [place] Metapneumo PCR Nasal M.pneumoniae (PCR) Nasal SARS-CoV-2 (PCR) - Rads (name of study) cxr Radiology: Prelim report reviewed, See rad report PD MEDICAL DECISION MAKING - ED course Complexity details: reviewed old records, reviewed results, re-evaluated patient, considered differential, d/w patient ED course: presents via ambulance with c/o dyspnea that is worse than baseline dyspnea (since 08/04/21) over past 1-2 days. He has had worsening dyspnea recently associated with severe anemia, but tonights hemoglobin is highest it has been since 08/04/21. He is found to be febrile in ED , was unaware of fevers at home. His WBC is normal tonight. Creatinine is elevated though comparable to recent previous results. BNP is mildly higher than previous results, although CXR only s/o mild CHF. CXR also s/o possible atypical or viral infiltrates. He is in [facility] for most of his stay. He is given tylenol and he subsequently had normal temperatures which correlated with improvement in heart rate and his symptoms. The exacerbation of his dyspnea is most likely related to the fever, although the cause of fever is not apparent at this time. Given his multiple comorbites and possible atypical pneumonia on CXR, I recommended antibiotic and patient is agreeable to this. He is given zithromax in ED and rx for same is transmitted to his pharmacy of choice. Results of tonights tests reviewed with patient, return precautions discussed Departure - Departure Disposition: Home, Self Care Clinical Impression: Dyspnea on exertion Afib Qualifiers: Atrial fibrillation type: longstanding persistent Qualified Code(s): I48.11 - Longstanding persistent atrial fibrillation Condition: Good Instructions: ED Afib, ED Dyspnea Shortness of Breath Follow-Up: Maya Mitchell, DBA [Primary Care Provider] - (Call tomorrow (Monday) to arrange for next available appoitnment for reevaluation) Prescriptions: Azithromycin [Zithromax] 250 mg PO DAILY #4 tablet Comments: Tonights test results are reassuring. Your red blood cell levels are low, but they are the highest they've been since 08/04/21. There is no obvious infection on chest xray (does not appear to be a pneumonia); however, considering that you have a fever tonight and are short of breath without obvious cause (such as severe anemia or large fluid build-up on your lungs), you are being given and prescribed an antibiotic. You were given a dose tonight and a prescription has been electronically submitted to [facility] pharmacy in [place]. Discharge Date/Time: 10/10/21 02:20
[2021-10-09 23:36] LABS: BASOPHILS % (AUTO) 0.2 %; EOSINOPHILS % (AUTO) 0.1 %; HCT - HEMATOCRIT 28.1 % (42.0-52.0); HGB - HEMOGLOBIN 8.7 g/dL (14.0-18.0); LYMPHOCYTES # (AUTO) 0.4 10^3/uL (1.5-3.5); MEAN CORPUSCULAR HEMOGLOBIN 26.7 pg (27.0-31.0); MEAN CORPUSCULAR VOLUME 86.2 fL (80.0-94.0); MEAN PLATELET VOLUME 8.5 fL (7.4-11.4); MONOCYTES # (AUTO) 0.4 10^3/uL (0.0-1.0); NEUTROPHILS # (AUTO) 7.6 10^3/uL (1.5-6.6); NEUTROPHILS % (AUTO) 89.5 %; PLT - PLATELET COUNT 112 10^3/uL (130-450); RED BLOOD COUNT 3.26 10^6/uL (4.70-6.10); RED CELL DISTRIBUTION WIDTH 17.2 % (12.0-15.0); WHITE BLOOD COUNT 8.5 x10^3/uL (4.8-10.8)
[2021-10-09 23:50] LABS: ALBUMIN 2.8 g/dL (3.2-5.5); ALBUMIN/GLOBULIN RATIO 0.7 (1.0-2.2); BILIRUBIN,TOTAL 1.2 mg/dL (0.2-1.0); CALCIUM 8.2 mg/dL (8.5-10.3); CREATININE 1.6 mg/dL (0.6-1.2); POTASSIUM 4.4 mmol/L (3.5-5.0); TOTAL PROTEIN 6.9 g/dL (6.7-8.2)
--- NOTE | 2021-10-10 00:12 | XRAY Report ---
PROCEDURE: Chest 2 View X-Ray INDICATIONS: dyspnea, fever TECHNIQUE: 2 view(s) of the chest. COMPARISON: Prior chest plain film 10/01/[address] 09/10/2021 reviewed. FINDINGS: Surgical changes and devices: None. Lungs and pleura: No pleural effusions or pneumothorax. Lungs are abnormal, with what appears to be a pulmonary edema pattern. Mediastinum: Mediastinal contours are normal. Heart size is mildly enlarged.. Bones and chest wall: No suspicious bony abnormalities. Soft tissues appear unremarkable. IMPRESSION: Suspected mild acute CHF, however the alveolar edema pattern present conceivably could b e produced by atypical/viral pneumonia. Dense consolidative pneumonia is not found. Reviewed by: Con Horner MD on 10/10/2021 12:13 AM PDT Approved by: Con Horner MD on 10/10/2021 12:13 AM PDT Station ID: [id number]
[2021-10-10 00:27] LABS: B. PARAPERTUSSIS- RESP PCR PAN NOT DETECTED; B. PERTUSSIS- RESP PCR PANEL NOT DETECTED; C. PNEUMONIAE- RESP PCR PANEL NOT DETECTED; CORONAVIRUS 229E-RESP PCR NOT DETECTED; CORONAVIRUS HKU1-RESP PCR NOT DETECTED; CORONAVIRUS NL63-RESP PCR NOT DETECTED; CORONAVIRUS OC43-RESP PCR NOT DETECTED; HUMAN METAPNEUMOVIRUS NOT DETECTED; INFLUENZA A- RESP PCR PANEL NOT DETECTED; INFLUENZA B - RESP PCR PANEL NOT DETECTED; M. PNEUMONIAE- RESP PCR PANEL NOT DETECTED; PARAINFLUENZA VIRUS 1 NOT DETECTED; PARAINFLUENZA VIRUS 2 NOT DETECTED; PARAINFLUENZA VIRUS 3 NOT DETECTED; PARAINFLUENZA VIRUS 4 NOT DETECTED; RHINOVIRUS/ENTEROVIRUS NOT DETECTED; RSV- RESP PCR PANEL NOT DETECTED; SARS-CoV-2 -RESP PCR PANEL NOT DETECTED
[2021-10-10] MEDS ORDERED: ACETAMINOPHEN 325 MG TABLET PO STA (00:36)
[2021-10-10 00:55] LABS: BILIRUBIN,URINE NEGATIVE (NEGATIVE); GLUCOSE, URINE (UA) NEGATIVE (NEGATIVE); KETONES,URINE (UA) NEGATIVE (NEGATIVE); LEUKOCYTE ESTERASE, URINE NEGATIVE (NEGATIVE); NITRITE,URINE NEGATIVE (NEGATIVE); OCCULT BLOOD,URINE TRACE-LYSE (NEGATIVE); PH,URINE 5.5 PH (5.0-7.5); PROTEIN,URINE NEGATIVE (NEGATIVE); UROBILINOGEN,URINE 0.2 (NORMAL) E.U./dL (NORMAL)
[2021-10-10 00:56] LABS: CLARITY,URINE CLEAR (CLEAR)
[2021-10-10] MEDS ORDERED: AZITHROMYCIN 250 MG TABLET PO STA (02:09)
[2021-10-10 02:27] VITALS: BP 101/61
== END 2021-10-10 02:20 | disposition home or self-care (01) ==
LOC: EDUNIT# → SUPCPDRO 23:07 → ED 23:07
DX: R06.09 Other forms of dyspnea (principal); I10 Essential (primary) hypertension; I48.91 Unspecified atrial fibrillation; Z87.891 Personal history of nicotine dependence
CPT/HCPCS: 36415; 71046; 80053; 81003; 83605; 83690; 83880; 84484; 85025; 87633; 93005; 99284; A9270; 81001; 87086

== ENCOUNTER 2021-11-11 08:48 | Outpatient (CLI) | payer MEDICARE | END 2021-11-11 08:49 | disposition critical access hospital (66) | LOC: EMS 08:48 | DX: M54.50 Low back pain, unspecified (principal); G89.29 Other chronic pain; R53.1 Weakness; R15.9 Full incontinence of feces; R03.1 Nonspecific low blood-pressure reading | CPT/HCPCS: A0425; A0427 ==

== ENCOUNTER 2021-11-11 09:19 | Inpatient (IN) | payer MEDICARE ==
--- NOTE | 2021-11-11 10:00 | ED Physician Documentation ---
PD HPI DYSPNEA - Stated complaint Stated Complaint: BACK PX - Chief complaint Chief Complaint: Back Pain - History obtained from History obtained from: Patient, EMS - History of Present Illness Timing - onset: How many days ago (has had increasing dyspnea, weakness and edema the past 2-3 days. Unable to stand today due to weakness generally. EMS found patient pale, sats 87%. Low BP. History of anemia, CHF. Has low back pain the past 3 weeks as well.) Timing - onset during: Light activity Timing - duration: Days Timing - details: Gradual onset, Still present Inciting event(s): Other (increased edema). No: URI, Immobilization/travel Improved by: O2, Rest Worsened by: Exertion, Laying flat Associated symptoms: Bilateral edema (increasing from baseline the past few days.). No: Fever, Cough, Wheezing Similar symptoms before: Diagnosis (CHF, anemia (iron deficiency), obesity.) Review of Systems Constitutional: denies: Fever, Chills Nose: denies: Rhinorrhea / runny nose, Congestion Throat: denies: Sore throat Cardiac: reports: Palpitations, Pedal edema. denies: Chest pain / pressure, Calf pain Respiratory: reports: Dyspnea. denies: Cough, Wheezing GI: reports: Diarrhea (loose stools, without melena). denies: Nausea, Vomiting, Bloody / black stool : reports: Incontinent. denies: Dysuria Neurologic: reports: Generalized weakness. denies: Near syncope, Confused, Altered mental status Psychiatric: denies: Depressed Endocrine: reports: Weight gain PD PAST MEDICAL HISTORY - Past Medical History Past Medical History: Yes Cardiovascular: Congestive heart failure (last ECHO August 2021 with EF 65%), Hypertension, High cholesterol, Coronary artery disease (stent 2019), Atrial fibrillation, Murmur, Valve disorder (TAVR 2016) Respiratory: Sleep apnea, CPAP use Neuro: None Endocrine/Autoimmune: None GI: Colon polyps : Nocturia HEENT: Glaucoma, Chronic hearing loss Psych: None Musculoskeletal: Osteoarthritis Derm: None - Past Surgical History Past Surgical History: Yes General: Colonoscopy Cardiovascular: Valve replacement, Vascular surgery HEENT: Tonsil/Adenoidectomy - Present Medications Home Medications: Ambulatory Orders Medication Instructions Recorded Confirmed Atorvastatin Calcium [Lipitor] 20 mg PO DAILY 11/27/12 11/11/21 Folic Acid 1 mg PO DAILY 11/27/12 11/11/21 Carvedilol [Coreg] 37.5 mg PO BID 08/02/21 11/11/21 hydrALAZINE [Apresoline] 50 mg PO TID 08/02/21 11/11/21 Multivitamin 1 tab PO DAILY 09/08/21 11/11/21 Furosemide [Lasix] 40 mg PO DAILY 11/11/21 11/11/21 - Allergies Allergies/Adverse Reactions: Allergies Allergy/AdvReac Type Severity Reaction Status Date / Time lisinopril Allergy Severe Respiratory Verified 11/11/21 09:30 Thiazides Allergy unknown Verified 11/11/21 09:30 - Living Situation Living Situation: reports: With spouse/s.o. Living Arrangement: reports: At home - Social History Does the pt smoke?: No Smoking Status: Never smoker Does the pt drink ETOH?: Yes Does the pt have substance abuse?: No - Family History Family history: reports: CAD - Immunizations Immunizations are current?: Yes - POLST Patient has POLST: Yes POLST Status: Limited Interventions PD ED PE NORMAL - Vitals Vital signs reviewed: Yes - General General: Alert and oriented X 3, Well developed/nourished, Other (tachypnea but able to talk sentences. ) - Cardiac Cardiac: No: RRR (irregular with left sided chest murmur systolic. ) - Respiratory Respiratory: No: Clear bilaterally (bilateral fine crakles lower third both sides. No wheezing. ) - Abdomen Abdomen: Normal bowel sounds, Soft, Non tender, Non distended, Other (markedly obese. ) - Male Male : Deferred - Rectal Rectal: Other (soft stool in vault. Dark brown. Guiaic negative. ) - Derm Derm: Normal color, Warm and dry - Extremities Extremities: No calf tenderness / cord, Other (3+ pitting edema bilaterally up to thighs.) - Neuro Neuro: Alert and oriented X 3, No motor deficit, Normal speech Eye Opening: Spontaneous Motor: Obeys Commands Verbal: Oriented GCS Score: 15 Results - Vitals Vitals: Vital Signs - 24 hr 11/11/21 11/11/21 11/11/21 09:20 09:30 10:00 Temperature 36.6 C Heart Rate 82 84 88 Respiratory 18 26 H Rate Blood Pressure 91/53 L 96/55 L O2 Saturation 87 L 93 93 11/11/21 11/11/21 11/11/21 10:30 11:14 11:17 Temperature Heart Rate 86 86 Respiratory 31 H 37 H Rate Blood Pressure 100/67 94/49 L O2 Saturation 89 L 90 L 93 11/11/21 11:31 Temperature Heart Rate 85 Respiratory 24 Rate Blood Pressure 90/54 L O2 Saturation 95 Oxygen O2 Source Nasal cannula Oxygen Flow Rate 2 - EKG (time done) 10:39 Rate: Rate (enter#) (80) Rhythm: Atrial fibrillation [place]: Normal QRS: LVH Ischemia: Normal ST segments. No: ST elevation c/w ischemia, ST depression Compare to prior EKG: Unchanged from prior EKG (10/19/21) - Labs Labs: Microbiology 11/11/21 10:34 Occult Blood - Final Stool - Loose Consistency Laboratory Tests 11/11/21 11/11/21 11/11/21 10:40 10:40 10:40 WBC 6.0 RBC 2.17 L Hgb 5.8 L* Hct 19.0 L* MCV 87.6 MCH 26.7 L MCHC 30.5 L RDW 18.3 H Plt Count 68 L MPV 9.5 Neut # (Auto) 5.2 Lymph # (Auto) 0.4 L [place] # (Auto) 0.4 Eos # (Auto) 0.0 Baso # (Auto) 0.0 Absolute Nucleated RBC 0.00 Nucleated RBC % 0.0 Sodium 134 L Potassium 4.6 Chloride 104 Carbon Dioxide 21 Anion Gap 9.0 BUN 100 H* Creatinine 3.7 H Estimated GFR (MDRD) 16 L Glucose 98 Calcium 8.0 L Magnesium 2.6 Total Bilirubin 0.8 AST 19 ALT 23 Alkaline Phosphatase 62 Troponin I High Sens 130.2 H* B-Natriuretic Peptide Total Protein 6.3 L Albumin 2.6 L Globulin 3.7 Albumin/Globulin Ratio 0.7 L Lipase 160 H Urine Color Urine Clarity Urine pH Ur Specific [place] Urine Protein Urine Glucose (UA) Urine Ketones Urine Occult Blood Urine Nitrite Urine Bilirubin Urine Urobilinogen Ur Leukocyte Esterase Urine RBC Urine WBC Ur Squamous Epith Cells Urine Bacteria Ur Microscopic Review Urine Culture Comments Blood Type Antibody Screen Crossmatch IS Only 11/11/21 11/11/21 11/11/21 10:40 10:40 11:12 WBC RBC Hgb Hct MCV MCH MCHC RDW Plt Count MPV Neut # (Auto) Lymph # (Auto) [place] # (Auto) Eos # (Auto) Baso # (Auto) Absolute Nucleated RBC Nucleated RBC % Sodium Potassium Chloride Carbon Dioxide Anion Gap BUN Creatinine Estimated GFR (MDRD) Glucose Calcium Magnesium Total Bilirubin AST ALT Alkaline Phosphatase Troponin I High Sens B-Natriuretic Peptide 1165 H Total Protein Albumin Globulin Albumin/Globulin Ratio Lipase Urine Color DARK YELLOW Urine Clarity CLEAR Urine pH 5.0 Ur Specific [place] 1.020 Urine Protein TRACE Urine Glucose (UA) NEGATIVE Urine Ketones NEGATIVE Urine Occult Blood LARGE H Urine Nitrite NEGATIVE Urine Bilirubin NEGATIVE Urine Urobilinogen 0.2 (NORMAL) Ur Leukocyte Esterase NEGATIVE Urine RBC 11-25 H Urine WBC 0-3 Ur Squamous Epith Cells FEW Squamous Urine Bacteria Few Ur Microscopic Review INDICATED Urine Culture Comments NOT INDICATED Blood Type A POSITIVE Antibody Screen NEGATIVE Crossmatch IS Only See Detail PD MEDICAL DECISION MAKING - ED course Complexity details: reviewed results, considered differential (hypoxic corrects with NC. marked edema. Given Lasix extra dosing. rectal showing guiaic negative stool. Anemic and this is likely contributing to edema due to decreased colloid pressure. Needs diuresing, transfusion. BP low but borderline adequate, and should correct with transfusion. No pressors.), d/w patient, d/w audit consultant Departure - Departure Disposition: 66 [facility] DC/Xfer Clinical Impression: Dyspnea, Weakness, Renal insufficiency, Acute lumbar back pain, Anemia Acute exacerbation of CHF (congestive heart failure) Qualifiers: Heart failure type: diastolic Qualified Code(s): I50.33 - Acute on chronic diastolic (congestive) heart failure Condition: Serious Discharge Date/Time: 11/11/21 13:00
[2021-11-11] MEDS ORDERED: FUROSEMIDE 40 MG/4 ML VIAL IVP STA (10:33)
[2021-11-11 10:56] LABS: BASOPHILS % (AUTO) 0.2 %; EOSINOPHILS % (AUTO) 0.2 %; LYMPHOCYTES # (AUTO) 0.4 10^3/uL (1.5-3.5); LYMPHOCYTES % (AUTO) 6.7 %; MEAN CORPUSCULAR HEMOGLOBIN 26.7 pg (27.0-31.0); MEAN CORPUSCULAR HGB CONC 30.5 g/dL (32.0-36.0); MEAN CORPUSCULAR VOLUME 87.6 fL (80.0-94.0); MEAN PLATELET VOLUME 9.5 fL (7.4-11.4); MONOCYTES # (AUTO) 0.4 10^3/uL (0.0-1.0); NEUTROPHILS # (AUTO) 5.2 10^3/uL (1.5-6.6); NEUTROPHILS % (AUTO) 86.1 %; PLT - PLATELET COUNT 68 10^3/uL (130-450); RED BLOOD COUNT 2.17 10^6/uL (4.70-6.10); RED CELL DISTRIBUTION WIDTH 18.3 % (12.0-15.0)
[2021-11-11 10:58] LABS: HGB - HEMOGLOBIN 5.8 g/dL (14.0-18.0)
[2021-11-11 11:06] LABS: ALBUMIN 2.6 g/dL (3.2-5.5); ALBUMIN/GLOBULIN RATIO 0.7 (1.0-2.2); BILIRUBIN,TOTAL 0.8 mg/dL (0.2-1.0); CREATININE 3.7 mg/dL (0.6-1.2); MAGNESIUM 2.6 mg/dL (1.7-2.8); POTASSIUM 4.6 mmol/L (3.5-5.0); TOTAL PROTEIN 6.3 g/dL (6.7-8.2)
--- NOTE | 2021-11-11 11:07 | XRAY Report ---
PROCEDURE: Chest 1 View X-Ray INDICATIONS: chest pain TECHNIQUE: One view of the chest was acquired. COMPARISON: October 09, 2021 FINDINGS: SUPPORT DEVICES: Aortic valve prosthesis is seen.. LUNGS/PLEURA: Reduced lung lungs. Prominent interstitial markings, most consistent with pulmonary kaylene ma. No large pleural effusion or pneumothorax. MEDIASTINUM: Enlargement the cardiac silhouette. BONES/SOFT TISSUES: No acute abnormality. IMPRESSION: 1.Pulmonary edema pattern. Reviewed by: Woo Huerta MD on 11/11/2021 11:05 AM PDT Approved by: Woo Huerta MD on 11/11/2021 11:05 AM PDT Station ID: [id number]
[2021-11-11 11:20] LABS: BILIRUBIN,URINE NEGATIVE (NEGATIVE); GLUCOSE, URINE (UA) NEGATIVE (NEGATIVE); KETONES,URINE (UA) NEGATIVE (NEGATIVE); LEUKOCYTE ESTERASE, URINE NEGATIVE (NEGATIVE); NITRITE,URINE NEGATIVE (NEGATIVE); OCCULT BLOOD,URINE LARGE (NEGATIVE); PROTEIN,URINE TRACE mg/dL (NEGATIVE); UROBILINOGEN,URINE 0.2 (NORMAL) E.U./dL (NORMAL)
[2021-11-11 11:21] LABS: CLARITY,URINE CLEAR (CLEAR)
--- NOTE | 2021-11-11 11:27 | CT Report ---
PROCEDURE: LUMBAR SPINE WO INDICATIONS: low back pain 2 weeks TECHNIQUE: Noncontrast 3 mm thick sections acquired from the T12 level to the sacrum. Sagittal and coronal refo rmats were constructed. For radiation dose reduction, the following was used: automated exposure co ntrol, adjustment of mA and/or kV according to patient size. COMPARISON: CT of abdomen and pelvis dated 09/09/2021. FINDINGS: Image quality: Excellent. Bones: There is straightening of normal lumbar lordosis. No acute vertebral body compression fractu res. No suspicious lytic or blastic bony lesions. Bridging anterior osteophyte formation throughout visualized lower thoracic spine and lumbar spine is seen. Partial ankylosis involving bilateral sacro iliac joints are also seen concerning for ankylosing spondylitis. There is no pars defects. T12-L1: Slight loss of disc height is seen. Degenerative endplate changes are noted. No significant central canal stenosis or neural foraminal narrowing. L1-L2: Loss of disc height and degenerative endplate changes are seen. Diffuse disc bulge and bila teral facet arthrosis is seen with mild central canal stenosis and bilateral neural foraminal narrowi ng. L2-L3: There is loss of disc height and degenerative endplate changes. Broad-based disc bulge and bilateral facet arthrosis is noted with mild to moderate central canal stenosis and left worse in rig ht bilateral neural foraminal narrowing. L3-L4: There is loss of disc height. Broad-based disc bulge and bilateral facet arthrosis is seen c ausing moderate central canal stenosis and bilateral neural foraminal narrowing. L4-L5: Loss of disc height and degenerative endplate changes are seen. Broad-based disc bulge and carlo ateral facet arthrosis is seen causing severe central canal stenosis and right worse than left bilate ral severe neural foraminal narrowing. L5-S1: Broad-based disc bulge and bilateral facet arthrosis is seen with mild central canal stenosi s and moderate to severe bilateral neural foraminal narrowing. Soft tissues: No retroperitoneal masses or hematomas. Visualized aorta is normal in caliber. IMPRESSION: 1. No acute compression fracture or spondylolisthesis. Bridging anterior osteophyte formation through out lower thoracic and lumbar spine and partial ankylosis of bilateral sacroiliac joints suggestive o f ankylosing spondylitis. No pars defects. 2. Degenerative disc disease throughout lumbar spine causing moderate to severe central canal stenosi s and bilateral neural foraminal narrowing most prominent at L4-5 level as above. Reviewed by: Marco Gonzalez MD on 11/11/2021 11:26 AM PDT Approved by: Marco Gonzalez MD on 11/11/2021 11:26 AM PDT Station ID: [id number]
[2021-11-11 11:29] LABS: BACTERIA,URINE Few /HPF (None Seen); SQUAMOUS EPITHELIAL CELL,UR FEW Squamous (<= Few); WBC,URINE 0-3 /HPF (0-3)
[2021-11-11] MEDS ORDERED: ONDANSETRON 4 MG/2 ML VIAL IVP PRN (11:51)
[2021-11-11] MEDS ORDERED: SODIUM CHLORIDE FLUSH 0.9% 10 ML SYRINGE IVP PRN (11:51)
[2021-11-11] MEDS ORDERED: ONDANSETRON ODT 4 MG TABLET TL PRN (11:51)
[2021-11-11] MEDS ORDERED: ACETAMINOPHEN 325 MG TABLET PO PRN (11:59)
[2021-11-11 13:00] LABS: B. PARAPERTUSSIS- RESP PCR PAN NOT DETECTED; B. PERTUSSIS- RESP PCR PANEL NOT DETECTED; C. PNEUMONIAE- RESP PCR PANEL NOT DETECTED; CORONAVIRUS 229E-RESP PCR NOT DETECTED; CORONAVIRUS HKU1-RESP PCR NOT DETECTED; CORONAVIRUS NL63-RESP PCR NOT DETECTED; CORONAVIRUS OC43-RESP PCR NOT DETECTED; HUMAN METAPNEUMOVIRUS NOT DETECTED; INFLUENZA A- RESP PCR PANEL NOT DETECTED; INFLUENZA B - RESP PCR PANEL NOT DETECTED; M. PNEUMONIAE- RESP PCR PANEL NOT DETECTED; PARAINFLUENZA VIRUS 1 NOT DETECTED; PARAINFLUENZA VIRUS 2 NOT DETECTED; PARAINFLUENZA VIRUS 3 NOT DETECTED; PARAINFLUENZA VIRUS 4 NOT DETECTED; RHINOVIRUS/ENTEROVIRUS NOT DETECTED; RSV- RESP PCR PANEL NOT DETECTED; SARS-CoV-2 -RESP PCR PANEL NOT DETECTED
--- NOTE | 2021-11-11 13:35 | HISTORY & PHYSICAL EXAMINATION ---
Chief Complaint - Chief Complaint Chief Complaint: Muscle aches History of Present Illness - Admitted From Admitted From:: Home - History Obtained From Records Reviewed: [facility] History obtained from: Patient, ER Physician, EMR - History of Present Illness HPI Comment/Other: This is a 75-year-old male with a past medical history significant for diastolic heart failure, history of TAVR, CKD stage III, chronic anemia who presents today complaining of muscle spasms. He states it began a few days ago and is predominantly in his lower back. He stated a history of chronic back pain. Upon further questioning, he states he has felt short of breath but cannot tell me for exactly how long. He states his lower extremities are more edematous compared to usual and this has really progressed over the past 2 weeks. He has had some orthopnea. He does take Lasix at home. He does have anemia and follows with Dr. Krian at the [facility] clinic. His catalyst impregnator is Dr. Cheney. He has not noticed any blood in his stool. He has had an EGD and colonoscopy which did not reveal an obvious source of bleeding. The plan is to set up outpatient capsule endoscopy for further work-up. He denies any fevers or chills. Does not feel dizzy or lightheaded. Has not noticed any hematuria, dysuria, urgency. Here in the emergency department, he was noted to be hypoxic and is now requiring 2 L of oxygen. He also be borderline hypotensive with systolics in th e 90s. His creatinine is doubled compared to his baseline of 1.8. X-ray also showed pulmonary edema. His stools negative for occult blood. Given concern for heart failure and anemia, medicine was consulted for admission. I did discuss goals of care the patient and he would like to be a DNR. He does not want aggressive measures such as dialysis or aggressive therapies. I did speak with the patient's , Yudy, who also confirms that this is the patient's wishes and that he has expressed this in the past. History - Past Medical History Cardiovascular: reports: Hypertension, High cholesterol, Coronary artery disease, Atrial fibrillation, Valve disorder Respiratory: reports: Sleep apnea, CPAP use Neuro: reports: None Endocrine/Autoimmune: reports: None GI: reports: Colon polyps : reports: Nocturia HEENT: reports: Glaucoma, Chronic hearing loss Psych: reports: None Musculoskeletal: reports: Osteoarthritis Derm: reports: None MRSA Hx?: No - Past Surgical History General: reports: Colonoscopy Cardiovascular: reports: Valve replacement, Vascular surgery HEENT: reports: Tonsil/Adenoidectomy - Family & Social History Family History Comment/Other: He does not report any significant family history to his knowledge. Living arrangement: At home Living Situation: With spouse/s.o. Social History Notes: He lives at home with his , Yudy. He smoked 2 packs a day for 10 years but quit over 30 years ago. He rarely drinks alcohol. - Substance History Use: Uses substance without health or social issues: Alcohol - POLST Patient has POLST: Yes POLST Status: Limited Interventions Meds/Allgy - Home Medications Home Medications: Ambulatory Orders Medication Instructions Recorded Confirmed Atorvastatin Calcium [Lipitor] 20 mg PO DAILY 11/27/12 11/11/21 Folic Acid 1 mg PO DAILY 11/27/12 11/11/21 Carvedilol [Coreg] 37.5 mg PO BID 08/02/21 11/11/21 hydrALAZINE [Apresoline] 50 mg PO TID 08/02/21 11/11/21 Multivitamin 1 tab PO DAILY 09/08/21 11/11/21 Furosemide [Lasix] 40 mg PO DAILY 11/11/21 11/11/21 - Allergies Allergies/Adverse Reactions: Allergies Allergy/AdvReac Type Severity Reaction Status Date / Time lisinopril Allergy Severe Respiratory Verified 11/11/21 09:30 Thiazides Allergy unknown Verified 11/11/21 09:30 Review of Systems - Constitutional Constitutional: reports: Fatigue, Weakness. denies: Fever, Chills - Ears, Nose & Throat Ears, Nose & Throat: denies: Nasal discharge, Nasal congestion - Cardiovascular Cariovascular: reports: Edema, Exertional dyspnea, Decr. exercise tolerance. denies: Chest pain, Lightheadedness, Syncope - Respiratory Respiratory: reports: Cough, Orthopnea, SOB at rest, SOB with exertion - Gastrointestinal Gastrointestinal: denies: Abdominal pain, Black stools, Bloody stools, Nausea, Vomiting - Genitourinary Genitourinary: denies: Dysuria, Frequency, Hematuria - Musculoskeletal Musculoskeletal: reports: Muscle pain, Back pain, Muscle aches - Integumentary Integumentary: denies: Rash - Neurological Neurological: reports: General weakness. denies: Focal weakness - Hematologic/Lymphatic Hematologic/Lymphatic: reports: Anemia. denies: Bleeding tendencies - All Other Systems All Other Systems: reports: Reviewed and negative Prior Level of Functionality: He is normally independent with his ADLs. Exam - Vital Signs Reviewed Vital Signs: Yes Vital Signs: Vital Signs x48h Temp Pulse Resp BP Pulse Ox 11/11/21 12:30 85 34 H 92/63 92 11/11/21 12:00 85 34 H 92/56 L 93 11/11/21 11:31 85 24 90/54 L 95 11/11/21 11:17 93 11/11/21 11:14 86 37 H 94/49 L 90 L 11/11/21 10:30 86 31 H 100/67 89 L 11/11/21 10:00 88 26 H 96/55 L 93 11/11/21 09:30 84 93 11/11/21 09:20 36.6 C 82 18 91/53 L 87 L - Physical Exam General Appearance: positive: Other (He is alert but does appear lethargic and fatigued.) Eyes Bilateral: positive: Conjunctivae nml ENT: positive: ENT inspection nml Neck: positive: Nml inspection Respiratory: positive: Other (Breath sounds diminished with faint rales.) Cardiovascular: positive: Irregularly irregular, Systolic murmur. negative: Tachycardia, Bradycardia Abdomen: positive: Non-tender, No distention. negative: Tenderness Skin: positive: Warm, Dry, Other (Chronic venous stasis changes over the right lower extremity) Extremities: positive: Pedal edema (+3 edema in the bilateral lower extremities.) Neurologic/Psychiatric: positive: Disoriented to time, Other (He is oriented to self and location but not to the month. No focal deficits.). negative: Disoriented to person, Disoriented to place Conclusion/Plan - Problem List (1) Acute respiratory failure with hypoxia Conclusion/Plan: This is secondary to the exacerbation of his diastolic heart failure. He is requiring 4 to 6 L of oxygen to maintain his saturations. We will admit him to the floor for IV diuresis. If his oxygen requirements continue to increase then we will transfer him to the ICU as he may benefit from BiPAP to help with the pulmonary edema. There is no evidence of infection so we will hold off on antibiotics. He and his are both very clear that he is DNR. (2) Acute exacerbation of CHF (congestive heart failure) Conclusion/Plan: He has most definitely in heart failure given his significant lower extremity edema, chest x-ray findings and his hypoxia as he is requiring 2 L of oxygen. We will admit him under inpatient status. He has already received 80 mg of Lasix IV we will start him on 80 mg IV twice daily. Low-sodium diet and fluid restriction. Daily weights. Strict I's and O's. We will check a BMP on a daily basis. We do not have echocardiogram available but he had one just a couple months ago which showed preserved ejection fraction. Qualifiers: Heart failure type: diastolic Qualified Code(s): I50.33 - Acute on chronic diastolic (congestive) heart failure (3) Acute kidney injury superimposed on CKD Conclusion/Plan: Suspect this may be due to cardiorenal syndrome given the acute on chronic congestive heart failure. His creatinine is 3.7 which is above his baseline of 1.6. Another differential may be something such as Goodpasture or Shruthi's given his urine revealed RBCs but this is felt to be less likely at this time. The patient has made it quite clear he does not want hemodialysis but we still potentially could consider transfer to high-level care for nephrology evaluation if his renal function does not improve. Avoid nephrotoxins. Continue to monitor renal function and urine output. We will place a Small catheter. Check ANCA. (4) Acute on chronic anemia Conclusion/Plan: He has had chronic anemia and is followed by hematology and receiving outpatient IV iron infusions. EGD and colonoscopy have not revealed a source of bleeding. The next plan is to undergo capsule endoscopy but this has not been scheduled yet. His stool is negative for occult blood today. We will transfuse him a unit of packed red blood cell and recheck hemoglobin this afternoon. We will continue to transfuse for goal hemoglobin greater than 7. He will need Lasix after transfusions given he is already in heart failure. (5) Hypotension Conclusion/Plan: He is hypotensive this time with systolics in the 90s. There is not appear to be any evidence of infection given chest x-ray suggested pulmonary edema and urinalysis is not consistent with infection. He has a normal white blood cell count. This may be due to poor cardiac output but he is not appear to be in cardiogenic shock and last echocardiogram revealed a preserved ejection fraction. We will continue to diurese him as tolerated as this may ultimately improve his cardiac output. We will hold his home carvedilol for the time being. We will continue to monitor closely for evidence of hypoperfusion. (6) Chronic atrial fibrillation Conclusion/Plan: He is currently rate controlled. He is on carvedilol which she will look to resume as long as his blood pressure stable but likely at a reduced dose given the hypotension. I am hopeful we can resume 12.5 mg this evening. He is not on anticoagulation and this may be due to the chronic anemia. (7) Thrombocytopenia Conclusion/Plan: He has had thrombocytopenia over the past 2 months but this is the lowest it has been at 68. Currently no evidence of bleeding. No Lovenox for DVT prophylaxis given thrombocytopenia. He cannot tolerate SCDs as well given significant lower extremity edema. We will check a CBC on a daily basis if this continues to decline and his renal function gets worse then we will discuss with the patient regarding transfer to higher level of care. (8) Chronic lower back pain Conclusion/Plan: CT lumbar spine showed degenerative disc disease but no evidence of fracture. We will check a CK level given he is complaining of muscle aches. We will manage his pain with Tylenol but if necessary we will consider opiates. No NSAIDs due to his poor renal function. (9) S/P TAVR (transcatheter aortic valve replacement) Conclusion/Plan: Last echocardiogram in August revealed preserved ejection fraction with a bioprosthetic aortic valve that her borderline elevated velocities. There is also evidence of moderate tricuspid rotation. - Lab Results Lab results reviewed: Yes Fish Bones: 11/11/21 18:38 11/11/21 18:38 - Diagnostic Imaging Results Diagnostic Imaging Results: positive: Final report reviewed Core Measures - Issues Hospital Issues and Management Plan: 75-year-old male with CKD, diastolic heart failure presents with worsening dyspnea found to have acute on chronic anemia as well as acute on chronic heart failure with worsening renal function. He will be admitted for IV diuresis. - DVT/VTE - Prophylaxis VTE/DVT Device ordered at admit?: No Not Ordered - Medical Reason: Complication VTE/DVT Prophylaxis med ordered at admit?: No Not Ordered - Medical Reason: Contraindicated
--- NOTE | 2021-11-11 16:21 | PHARMACY PROGRESS NOTE ---
- Best Possible Medication History Admit Date and Time: 11/11/21 1151 Processed by: Pharmacy Medication History completed: Yes Patient Interview: Completed Secondary Source(s): Pharmacy records, Insurance records, Previous admit records As the person ultimately responsible for medication therapy, providers are able to order a medication from an existing home medication list in [facility] via the "Reconcile Routine" prior to Confirmation of that medication by wan support specialist. Such practice is discouraged except when the physician, in their clinical judgment, deems that a medical need exists for a medication without regard to previous use.
[2021-11-11] MEDS: SODIUM CHLORIDE FLUSH 0.9% 10 ML SYRINGE IVP SCH (18:15)
[2021-11-11 18:34] LABS: ABG HCO3 24.6 mmol/L (22.0-26.0); ABG PCO2 53 mmHg (34-45); ABG PH 7.27 (7.35-7.45); ABG PO2 56 mmHg (80-100); ALLEN TEST POSITIVE
[2021-11-11 18:36] LABS: ABG OXYGEN SATURATION 84 % (94-98)
[2021-11-11 18:42] LABS: HCT - HEMATOCRIT 22.5 % (42.0-52.0)
[2021-11-11 18:46] LABS: HGB - HEMOGLOBIN 6.8 g/dL (14.0-18.0)
[2021-11-11 19:10] LABS: CALCIUM 8.1 mg/dL (8.5-10.3); CREATININE 3.9 mg/dL (0.6-1.2); POTASSIUM 5.1 mmol/L (3.5-5.0)
[2021-11-11] MEDS ORDERED: LORazepam 2 MG/ML VIAL IVP PRN (22:10)
[2021-11-12] MEDS ORDERED: FUROSEMIDE 40 MG/4 ML VIAL IVP STA (00:08)
[2021-11-12] MEDS ORDERED: MORPHINE 2 MG/ML CARPUJECT IVP PRN (00:09)
[2021-11-12] MEDS: SODIUM CHLORIDE FLUSH 0.9% 10 ML SYRINGE IVP SCH (00:25)
[2021-11-12 05:52] LABS: BASOPHILS % (AUTO) 0.2 %; HCT - HEMATOCRIT 24.1 % (42.0-52.0); HGB - HEMOGLOBIN 7.4 g/dL (14.0-18.0); LYMPHOCYTES # (AUTO) 0.6 10^3/uL (1.5-3.5); LYMPHOCYTES % (AUTO) 4.5 %; MEAN CORPUSCULAR HEMOGLOBIN 27.7 pg (27.0-31.0); MEAN CORPUSCULAR HGB CONC 30.7 g/dL (32.0-36.0); MEAN CORPUSCULAR VOLUME 90.3 fL (80.0-94.0); MEAN PLATELET VOLUME 10.2 fL (7.4-11.4); MONOCYTES # (AUTO) 0.5 10^3/uL (0.0-1.0); NEUTROPHILS # (AUTO) 11.7 10^3/uL (1.5-6.6); NEUTROPHILS % (AUTO) 90.4 %; PLT - PLATELET COUNT 86 10^3/uL (130-450); RED BLOOD COUNT 2.67 10^6/uL (4.70-6.10); WHITE BLOOD COUNT 12.9 x10^3/uL (4.8-10.8)
[2021-11-12] MEDS ORDERED: BUMETANIDE INJ 10 MG in SODIUM CHLORIDE 0.9% 210 ML IV SCH (06:00)
[2021-11-12] MEDS ORDERED: FUROSEMIDE 40 MG/4 ML VIAL IVP SCH (06:00)
[2021-11-12 06:16] LABS: CALCIUM 8.2 mg/dL (8.5-10.3); CREATININE 4.1 mg/dL (0.6-1.2); MAGNESIUM 2.8 mg/dL (1.7-2.8); PHOSPHORUS 8.4 mg/dL (2.5-4.6); POTASSIUM 5.8 mmol/L (3.5-5.0)
[2021-11-12 06:23] VITALS: BP 94/60
--- NOTE | 2021-11-12 06:36 | Discharge Plan ---
Discharge Plan Problem Reviewed?: Yes Disposition: 20 Condition: Serious No Smoking: If you smoke, Please STOP! Call for help. Follow-up with: Maya Mitchell ARNP [Primary Care Provider] -
--- NOTE | 2021-11-12 06:37 | DISCHARGE SUMMARY ---
"Discharge Summary Admit Date: 11/11/21 Discharge Date: 11/12/21 Discharging Provider: Anna Phelps MD Code Status: Do Not Attempt Resuscitation Discharge Disposition: 20 - DIAGNOSES Discharge Diagnoses with Status of Each Condition: 1. Acute respiratory failure with hypoxia 2. Acute on chronic diastolic heart failure 3. Acute kidney failure 4. CKD 5. Acute on chronic anemia 6. Hypotension 7. Chronic atrial fibrillation 8. Thrombocytopenia 9. Chronic lower back pain 10. Status post transaortic valvular replacement - HPI History of Present Illness: This is a 75-year-old male with a past medical history significant for diastolic heart failure, history of TAVR, CKD stage III, chronic anemia who presents today complaining of muscle spasms. He states it began a few days ago and is predominantly in his lower back. He stated a history of chronic back pain. Upon further questioning, he states he has felt short of breath but cannot tell me for exactly how long. He states his lower extremities are more edematous compared to usual and this has really progressed over the past 2 weeks. He has had some orthopnea. He does take Lasix at home. He does have anemia and follows with Dr. Kiran at the [facility] clinic. His weight loss sales consultant is Dr. Cheney. He has not noticed any blood in his stool. He has had an EGD and colonoscopy which did not reveal an obvious source of bleeding. The plan is to set up outpatient capsule endoscopy for further work-up. He denies any fevers or chills. Does not feel dizzy or lightheaded. Has not noticed any hematuria, dysuria, urgency. Here in the emergency department, he was noted to be hypoxic and is now requiring 2 L of oxygen. He also be borderline hypotensive with systolics in the 90s. His creatinine is doubled compared to his baseline of 1.8. X-ray also showed pulmonary edema. His stools negative for occult blood. Given concern for heart failure and anemia, medicine was consulted for admission. I did discuss goals of care the patient and he would like to be a DNR. He does not want aggressive measures such as dialysis or aggressive therapies. I did speak with the patient's , Yudy, who also confirms that this is the patient's wishes and that he has expressed this in the past. - Past Medical History Cardiovascular: reports: Hypertension, High cholesterol, Coronary artery disease, Atrial fibrillation, Valve disorder Respiratory: reports: Sleep apnea, CPAP use Neuro: reports: None Endocrine/Autoimmune: reports: None GI: reports: Colon polyps : reports: Nocturia HEENT: reports: Glaucoma, Chronic hearing loss Psych: reports: None Musculoskeletal: reports: Osteoarthritis Derm: reports: None MRSA Hx?: No - CONSULTS | PROCEDURES Procedures: Chest x-ray with pulmonary edema pattern Lumbar spine CT with no acute compression fractures. Bridging osteophytes throughout the lower thoracic and lumbar spine. Partial ankylosis of bilateral sacroiliac joints. Suggestive of ankylosing spondylitis. Diffuse degenerative disc disease seen in the lumbar spine that was causing moderate to severe central canal stenosis and bilateral neural foraminal narrowing. Occult blood positive - HOSPITAL COURSE Hospital Course: While the patient was accepting of admission because of his complaints, he made it very clear that he expected to have a short life span and did not want aggressive intervention done. BiPAP was the most he would consider to help him with his respiratory failure. Lasix 80 mg twice daily was given. He had some urine output with the first dose and had only 20 cc out with the next dose. He was put on a Bumex drip for very brief time before he . BiPAP was used to provide respiratory support. Labs showed worsening renal failure where BUN and creatinine continue to rise in spite of diuresis. and son were updated about his lack of response and they drove from to be at the bedside. Once there, they asked the BiPAP be removed and to focus on comfort measures only. Within moments the patient's heart rate slowed down, and he became asystolic. This unfortunate gentleman was pronounced at 6:35 AM. - ALLERGIES Allergies/Adverse Reactions: Allergies Allergy/AdvReac Type Severity Reaction Status Date / Time lisinopril Allergy Severe Respiratory Verified 11/11/21 09:30 Thiazides Allergy unknown Verified 11/11/21 09:30 - MEDICATIONS Home Medications: Ambulatory Orders Medication Instructions Recorded Confirmed Atorvastatin Calcium [Lipitor] 20 mg PO DAILY 11/27/12 11/11/21 Folic Acid 1 mg PO DAILY 11/27/12 11/11/21 Carvedilol [Coreg] 37.5 mg PO BID 08/02/21 11/11/21 hydrALAZINE [Apresoline] 50 mg PO TID 08/02/21 11/11/21 Multivitamin 1 tab PO DAILY 09/08/21 11/11/21 Furosemide [Lasix] 40 mg PO DAILY 11/11/21 11/11/21 - LABS Result Diagrams: 11/12/21 04:55 11/12/21 04:55"
[2021-11-16 13:11] LABS: CYTOPLASMIC (C-ANCA) <1:20 titer (Neg:<1:20); PERINUCLEAR (P-ANCA) <1:20 titer (Neg:<1:20)
== END 2021-11-12 06:35 | disposition expired | DRG 189 ==
LOC: EDUNIT# → ED 09:19 → MS2 11:51 → ICU 17:54
PROVIDERS: ADMIT Internal Medicine; ATTEND Specialist
DX: I11.0 Hypertensive heart disease with heart failure (principal); J96.01 Acute respiratory failure with hypoxia; N28.9 Disorder of kidney and ureter, unspecified; R09.02 Hypoxemia; M54.59 Other low back pain; I50.33 Acute on chronic diastolic (congestive) heart failure; Z20.822 Contact with and (suspected) exposure to COVID-19; I13.0 Hypertensive heart and chronic kidney disease with heart failure and stage 1 through stage 4 chronic kidney disease, or unspecified chronic kidney disease; N17.9 Acute kidney failure, unspecified; R53.1 Weakness; R19.7 Diarrhea, unspecified; I48.20 Chronic atrial fibrillation, unspecified; I48.91 Unspecified atrial fibrillation; I95.9 Hypotension, unspecified; R09.89 Other specified symptoms and signs involving the circulatory and respiratory systems; D69.6 Thrombocytopenia, unspecified; D64.9 Anemia, unspecified; N18.30 Chronic kidney disease, stage 3 unspecified; Z66 Do not resuscitate; G47.30 Sleep apnea, unspecified; I25.10 Atherosclerotic heart disease of native coronary artery without angina pectoris; M51.36 Other intervertebral disc degeneration, lumbar region; E78.00 Pure hypercholesterolemia, unspecified; Z87.891 Personal history of nicotine dependence; Z95.2 Presence of prosthetic heart valve
CPT/HCPCS: 36415; 36600; 71045; 72131; 80048; 80053; 81001; 82272; 82550; 82803; 83605; 83690; 83735; 83880; 84100; 84484; 85014; 85018; 85025; 85651; 86140; 86850; 86900; 86901; 86920; 87150; 87633; 93005; 94660; 99284; 99285; A9270; J2060; P9016; 81003; 87086